=== PATIENT | male | born 1950 | race Caucasian/White ===

== ENCOUNTER 2018-08-02 12:28 | Inpatient (IN) | payer MEDICARE ==
[2018-08-02 13:14] LABS: #Lymphocytes 0.3 thou/uL (1.20-3.40); #Monocytes 0.4 thou/uL (0.11-0.59); #Neutrophils 4.7 thou/uL (1.40-6.50); %Eosinophils 0.8 % (0.0-10.0); %Lymphocytes 5.3 % (21.0-51.0); %Monocytes 7.4 % (0.0-10.0); %Neutrophils 86.6 % (42.0-75.0); Hemoglobin 12.7 g/dL (14.0-18.0); Mean Corpuscular HGB CONC 33.5 g/dL (32.0-36.0); Mean Corpuscular Hemoglobin 30.8 pg (27.0-31.0); Mean Corpuscular Volume 92.1 fL (78.0-98.0); Mean Platelet Volume 8.4 fL (7.4-10.4); Platelet Count 127 thou/uL (130-400); RBC Distribution Width 13.1 % (11.5-14.5); Red Blood Cell (RBC) Count 4.11 mill/uL (4.70-6.10); White Blood Cell (WBC) Count 5.4 thou/uL (4.8-10.8)
[2018-08-02 13:27] LABS: ALT (SGPT) 12 U/L (8-55); AST (SGOT) 18 U/L (5-34); Alkaline Phosphatase 63 U/L (40-150); Anion Gap 13 mmol/L (10-20); BUN (Urea Nitrogen) 13 mg/dL (8.4-25.7); Bilirubin, Total 1.5 mg/dL (0.2-1.2); CK (CPK) 165 U/L (30-200); Calc. Creatinine Clearance 0 mL/min (70-130); Calcium 9.2 mg/dL (7.8-10.44); Carbon Dioxide 25 mmol/L (23-31); Chloride 105 mmol/L (98-107); Estimated GFR-MDRD 84; Globulin 2.4 g/dL (2.4-3.5); Glucose 107 mg/dL (80-115); Potassium 3.5 mmol/L (3.5-5.1); Protein, Total 6.4 g/dL (5.8-8.1); Sodium 139 mmol/L (136-145)
--- NOTE | 2018-08-02 13:33 | RAD ---
TWO VIEWS CHEST: Date: 08-02-18 Provided Clinical History: Cough. FINDINGS: Comparison is made with the study dated 11-13-13. Cardiac silhouette appears upper limits of normal in size. Median sternotomy changes are seen. Chroni c obstructive changes are suspected. No focal consolidation, pleural fluid or pneumothorax apparent. Posterior costophrenic angles are not included on the lateral view, precluding evaluation for small a neo of pleural fluid. IMPRESSION: No definite evidence for an acute cardiopulmonary process. POS: [facility]
[2018-08-02 13:48] LABS: CKMB 1.6 ng/mL (0-6.6)
--- NOTE | 2018-08-02 13:48 | PDOC.FPRHP ---
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 He noticed it this morning after he woke up and he was not able to get out of bed. Normally, despite his deficits, he is able to get out of bed with minimal assistance, however today, his was also not able to help him out of bed. He reportedly had a measured temperature of 101.5 at home. Reports non-productive cough since last night. He also complains of some nasal congestion. His was recently diagnosed with and receiving treatment for pneumonia. ED Course: Received 1 inch Nitro paste and 500 cc NS. - Allergies/Adverse Reactions Allergies Allergy/AdvReac Type Severity Reaction Status Date / Time clarithromycin Allergy Verified 11/13/13 21:23 colchicine Allergy Diarrhea Verified 11/20/13 11:26 erythromycin lactobionate Allergy Verified 11/13/13 21:23 [From Erythrocin] meloxicam Allergy Verified 11/13/13 21:23 metoclopramide Allergy Verified 11/13/13 21:23 NSAIDS (Non-Steroidal Allergy Verified 11/13/13 21:23 Anti-Inflamma - Home Medications Medication Instructions Recorded Confirmed Type Baclofen 10 mg PO BID 11/13/13 08/02/18 History Carvedilol 12.5 mg PO BID 11/13/13 08/02/18 History Digoxin [Lanoxin] 0.25 mg PO DAILY 11/13/13 08/02/18 History Loratadine [Claritin] 10 mg PO DAILY 11/13/13 08/02/18 History Simvastatin 40 mg PO HS 11/13/13 08/02/18 History Tamsulosin HCl [Flomax] 0.4 mg PO DAILY 11/13/13 08/02/18 History Clopidogrel Bisulfate [Plavix] 75 mg PO DAILY 11/20/13 08/02/18 History Acetaminophen [Tylenol] 1,000 mg PO Q6HR PRN 08/02/18 08/02/18 History - History PMHx: CAD, CVA(2011), HTN, HLD, Gout, BPH PSHx: CABG x 5 (2008), Vasectomy, Tonsillectomy, Hernia Repair FHx:Non-contributory. Social:Denies tobacco, alcohol, and drug use. Lives at home with . Ambulatory with walker. - Review of Systems General: reports: fever/chills. denies: weight/appetite/sleep changes ENT: reports: nasal congestion Respiratory: reports: cough, congestion. denies: shortness of breath Cardiovascular: denies: chest pain, edema Gastrointestinal: denies: nausea, vomiting, diarrhea Skin: denies: rashes Musculoskeletal: denies: other Neurological: reports: weakness, other (dizziness). denies: numbness - Vital signs BP: 135/67 HR: 90 RR: 12 Tmax: 98.0 Pox: 98% on RA Wt: 105kg - Physical Exam Constitutional: NAD HEENT: normocephalic and atraumatic, PERRLA, EOMI Neck: supple Heart: RRR Lungs: CTAB, no respiratory distress, no rales/rhonchi, no wheezing Abdomen: soft, non-tender Musculoskeletal: normal structure Neurological: CN II-XII intact, other (RUE and RLE 4/5 weakness with spasticity. ) Skin: no rash/lesions Psychiatric: normal mood and affect FMR H&P: Results - Labs Result Diagrams: 08/02/18 13:00 08/02/18 13:00 Lab results: WBC 5.4 thou/uL (4.8-10.8) 08/02/18 13:00 Hgb 12.7 g/dL (14.0-18.0) L 08/02/18 13:00 Hct 37.8 % (42.0-52.0) L 08/02/18 13:00 MCV 92.1 fL (78.0-98.0) 08/02/18 13:00 Plt Count 127 thou/uL (130-400) L 08/02/18 13:00 Neutrophils % 86.6 % (42.0-75.0) H 08/02/18 13:00 Sodium 139 mmol/L (136-145) 08/02/18 13:00 Potassium 3.5 mmol/L (3.5-5.1) 08/02/18 13:00 Chloride 105 mmol/L (98-107) 08/02/18 13:00 Carbon Dioxide 25 mmol/L (23-31) 08/02/18 13:00 BUN 13 mg/dL (8.4-25.7) 08/02/18 13:00 Creatinine 0.90 mg/dL (0.7-1.3) 08/02/18 13:00 Glucose 107 mg/dL (80-115) 08/02/18 13:00 Lactic Acid 0.8 mmol/L (0.5-2.2) 08/02/18 13:00 Calcium 9.2 mg/dL (7.8-10.44) 08/02/18 13:00 Total Bilirubin 1.5 mg/dL (0.2-1.2) H 08/02/18 13:00 AST 18 U/L (5-34) 08/02/18 13:00 ALT 12 U/L (8-55) 08/02/18 13:00 Alkaline Phosphatase 63 U/L (40-150) 08/02/18 13:00 Creatine Kinase 165 U/L (30-200) 08/02/18 13:00 Serum Total Protein 6.4 g/dL (5.8-8.1) 08/02/18 13:00 Albumin 4.0 g/dL (3.4-4.8) 08/02/18 13:00 - EKG Interpretation EKG: EKG: Sinus tachycardia with rate of 102; RBBB. - Radiology Interpretation Chest x-ray Status: report reviewed by nm FMR H&P: A/P - Problem List (1) Elevated troponin I level Current Visit: Yes Status: Acute Code(s): R74.8 - ABNORMAL LEVELS OF OTHER SERUM ENZYMES (2) History of stroke Current Visit: Yes Status: Acute Code(s): Z86.73 - PRSNL HX OF TIA (TIA), AND CEREB INFRC W/O RESID DEFICITS (3) Coronary artery disease Current Visit: Yes Status: Acute Code(s): I25.10 - ATHSCL HEART DISEASE OF [place] CORONARY ARTERY W/O ANG PCTRS (4) Upper respiratory infection Current Visit: Yes Status: Acute Code(s): J06.9 - ACUTE UPPER RESPIRATORY INFECTION, UNSPECIFIED (5) Hypertension Current Visit: Yes Status: Acute Code(s): I10 - ESSENTIAL (PRIMARY) HYPERTENSION (6) Hyperlipidemia Current Visit: Yes Status: Acute Code(s): E78.5 - HYPERLIPIDEMIA, UNSPECIFIED (7) Gout Current Visit: Yes Status: Acute Code(s): M10.9 - GOUT, UNSPECIFIED (8) BPH (benign prostatic hyperplasia) Current Visit: Yes Status: Acute Code(s): N40.0 - BENIGN PROSTATIC HYPERPLASIA WITHOUT LOWER URINRY TRACT SYMP - Plan Assessment and Plan Indeterminately elevated troponin - likely related to demand ischemia, vs. NSTEMI; Viral myocardititis a possibility although timecourse does not fit. - no active chest pain. - will continue to trend troponins. Obtain BNP, TSH. - will keep patient NPO over midnight in case of possible discussion with cardiology. Lower extremity weakness - seems consistent with pt's baseline RLE deficits. - will consult physical therapy for evaluation and recommendations. Likely viral upper respiratory infection - with negative flu, negative CXR. - obtain Procal. - will administer mucolytics. Hyperbilirubinemia - mild. Tbili 1.5; will obtain direct. - repeat CMP in AM. Coronary artery disease - will continue to trend troponins. - resume home medications. History of CVA - deficits as described above. - continue Plavix Hypertension - resume home medications. Hyperlipidemia - resume home medications. Gout? - continue Colchrys
[2018-08-02 16:00] VITALS: BMI 27.6
[2018-08-02 16:55] LABS: Troponin I 0.123 ng/mL (< 0.028)
[2018-08-02 17:09] LABS: Thyroid Stimulating Hormone 0.637 uIU/mL (0.35-4.94)
[2018-08-02] MEDS: Acetaminophen 325 MG TAB PO PRN (17:30)
[2018-08-02] MEDS ORDERED: guaiFENesin ER 600 MG TAB PO SCH (17:45)
[2018-08-02] MEDS: Baclofen 10 MG TAB PO SCH (21:35)
[2018-08-02] MEDS: Carvedilol 6.25 MG TAB PO SCH (21:35)
[2018-08-02] MEDS: Atorvastatin Calcium 20 MG TAB PO SCH (21:35)
[2018-08-02] MEDS: guaiFENesin ER 600 MG TAB PO SCH (21:35)
[2018-08-02] MEDS: Acetaminophen 500 MG TAB PO PRN (23:58)
--- NOTE | 2018-08-03 00:33 | PDOC.EVN ---
Event Note - Event Note Event Note: Paged by nursing staff due to patient experiencing worsening lower extremity weakness. Residents came and evaluated patient. present at bedside. Patient states he has felt ill for 2 days. Stated patient had elevated temp of 102F and became confused and tried to get out of bed. patient has know RUE and RLE 4/5 weakness and spasticity due to prior CVA. On my exam, RUE and RLE consistent with history. LUE 5/5. LLE 4/5. Review of chart showed procalcitonin of 0.4. Given recurrent fever, new weakness, and currently undergoing treatment for CAP, will empirically start doxycycline for CAP treatment since allergic to erythormycin. I believe his weakness is due to his underlying illness and not due to an ischemic neurological event. Will reassess in 2-3 hours and monitor for signs of worsening.
[2018-08-03 05:22] LABS: ALT (SGPT) 12 U/L (8-55); AST (SGOT) 25 U/L (5-34); Albumin 3.8 g/dL (3.4-4.8); Alkaline Phosphatase 57 U/L (40-150); Anion Gap 14 mmol/L (10-20); BUN (Urea Nitrogen) 15 mg/dL (8.4-25.7); Bilirubin, Total 1.5 mg/dL (0.2-1.2); Calc. Creatinine Clearance 104 mL/min (70-130); Carbon Dioxide 26 mmol/L (23-31); Chloride 101 mmol/L (98-107); Estimated GFR-MDRD 71; Globulin 2.4 g/dL (2.4-3.5); Glucose 94 mg/dL (80-115); Potassium 3.6 mmol/L (3.5-5.1); Protein, Total 6.2 g/dL (5.8-8.1); Sodium 137 mmol/L (136-145)
[2018-08-03 05:24] LABS: #Lymphocytes 0.5 thou/uL (1.20-3.40); #Monocytes 0.3 thou/uL (0.11-0.59); #Neutrophils 4.4 thou/uL (1.40-6.50); %Eosinophils 0.1 % (0.0-10.0); %Lymphocytes 8.8 % (21.0-51.0); %Monocytes 6.2 % (0.0-10.0); %Neutrophils 84.9 % (42.0-75.0); Hemoglobin 12.2 g/dL (14.0-18.0); Mean Corpuscular HGB CONC 33.4 g/dL (32.0-36.0); Mean Corpuscular Hemoglobin 31.5 pg (27.0-31.0); Mean Corpuscular Volume 94.1 fL (78.0-98.0); Mean Platelet Volume 8.3 fL (7.4-10.4); Platelet Count 97 thou/uL (130-400); Platelet Morphology Comment Appears Decreased; Red Blood Cell (RBC) Count 3.87 mill/uL (4.70-6.10); White Blood Cell (WBC) Count 5.1 thou/uL (4.8-10.8)
--- NOTE | 2018-08-03 05:51 | PDOC.FM ---
- Subjective Subjective: Tmax of 102.8F overnight w/ reported increased LE weakness per the patient. On exam, weakness noted to be at baseline. Patient denies any cough, chest pain, headache, SOB, or N/V/D. He also denies any changes in his speech or numbness/ tingling in anywhere. Says he feel slightly improved since admission. - Objective MAR Reviewed: Yes Vital Signs & Weight: Vital Signs (12 hours) Temp Pulse Resp BP BP Pulse Ox 08/03/18 04:11 99.3 F 106 H 20 131/63 92 L 08/02/18 23:49 102.8 F H 105 H 20 145/73 H 94 L 08/02/18 21:35 120/62 08/02/18 19:38 98.1 F 76 16 120/62 98 Weight Weight 105.188 kg I&O: 08/01/18 08/02/18 08/03/18 06:59 06:59 06:59 Intake Total 200 Balance 200 Result Diagrams: 08/03/18 04:47 08/03/18 04:47 Phys Exam - Physical Examination Constitutional: NAD HEENT: moist MMs Neck: no nodes, supple, full ROM Respiratory: no wheezing, no rales, no rhonchi, clear to auscultation bilateral Cardiovascular: RRR, no significant murmur Gastrointestinal: soft, positive bowel sounds Musculoskeletal: no edema, pulses present Neurological: moves all 4 limbs Psychiatric: normal affect, A&O x 3 Skin: no rash, normal turgor Dx/Plan (1) BPH (benign prostatic hyperplasia) Code(s): N40.0 - BENIGN PROSTATIC HYPERPLASIA WITHOUT LOWER URINRY TRACT SYMP Status: Acute (2) Coronary artery disease Code(s): I25.10 - ATHSCL HEART DISEASE OF [place] CORONARY ARTERY W/O ANG PCTRS Status: Acute (3) Elevated troponin I level Code(s): R74.8 - ABNORMAL LEVELS OF OTHER SERUM ENZYMES Status: Acute (4) Gout Code(s): M10.9 - GOUT, UNSPECIFIED Status: Acute (5) History of stroke Code(s): Z86.73 - PRSNL HX OF TIA (TIA), AND CEREB INFRC W/O RESID DEFICITS Status: Acute (6) Hyperlipidemia Code(s): E78.5 - HYPERLIPIDEMIA, UNSPECIFIED Status: Acute (7) Hypertension Code(s): I10 - ESSENTIAL (PRIMARY) HYPERTENSION Status: Acute (8) Upper respiratory infection Code(s): J06.9 - ACUTE UPPER RESPIRATORY INFECTION, UNSPECIFIED Status: Acute (9) Atrial fibrillation Code(s): I48.91 - UNSPECIFIED ATRIAL FIBRILLATION Status: Acute (10) Gastroesophageal reflux disease Code(s): K21.9 - GASTRO-ESOPHAGEAL REFLUX DISEASE WITHOUT ESOPHAGITIS Status: Acute - Plan Plan: Indeterminately elevated troponin - Likely related to demand ischemia in the setting of an acute illness as trops downtrended overnight & patient denies active chest pain. Viral myocardititis a possibility although time course does not fit. - However BNP also elevated at 755.9 suggestive of a possible CHF exacerbation but no baseline for comparison. TSH WNLs. - Will treat possible acute respiratory illness as described below and obtain an ECHO to evaluate for CHF today. Lower extremity weakness - Seems consistent with pt's baseline RLE deficits. Could subjectively seem worse to patient 2/2 generalized weakness in setting of acute illness. However, will continue to monitor closely over course of the day as GBS could be a possibly 2/2 acute viral illness. - Will consult physical therapy for evaluation and recommendations. No serious concerns for an acute ischemic cerebral event. Upper respiratory infection vs. CAP - Negative flu & CXR on admission but will start on empiric abx since being treated for CAP currently & patient fevered up to 102.8F overnight. - Initial procal indeterminate a 0.43. Will continue to trend and consider de- escalating abx accordingly in conjunction w/ watching for improvement in patient 's clinical status. - Will continue mucolytics & PRN supplemental O2 to keep sats > 92%. Will also continue PRN tylenol for fever & consider adding motrin as well. Hyperbilirubinemia - mild. Tbili 1.5 w/ direct slightly elevated at 0.6 on admission. Per chart review elevated Total & direct bili are within patient's baseline. With normal LFTs and Alk phos unlikely biliary in origin. Patient also has a normocytic anemia. 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 Will consider further workup if any s/s of active hemolysis present. Will continue to monitor w/ CBCs & CMPs. Coronary artery disease - resume home medications. History of CVA - deficits as described above. - continue Plavix Hypertension - resume home medications. Hyperlipidemia - resume home medications. Gout - continue Colchrys Dispo: Will transfer to medical obs and continue to monitor respiratory status & weakness closely. Possibly d/c tomorrow if continues to improve.
[2018-08-03] MEDS: Acetaminophen 500 MG TAB PO PRN (08:07)
[2018-08-03] MEDS: Baclofen 10 MG TAB PO SCH ×2 (08:08→20:44)
[2018-08-03] MEDS: Clopidogrel Bisulfate 75 MG TAB PO SCH (08:08)
[2018-08-03] MEDS: Enoxaparin Sodium 40 MG/0.4 ML SYRINGE SC SCH (08:08)
[2018-08-03] MEDS: Digoxin 0.25 MG TAB PO SCH (08:08)
[2018-08-03] MEDS: Loratadine 10 MG TAB PO SCH (08:08)
[2018-08-03] MEDS: Tamsulosin HCl 0.4 MG CAP PO SCH (08:09)
[2018-08-03] MEDS: guaiFENesin ER 600 MG TAB PO SCH ×2 (08:09→20:43)
[2018-08-03] MEDS: Carvedilol 6.25 MG TAB PO SCH ×2 (08:09→20:43)
--- NOTE | 2018-08-03 12:27 | PRG ---
DATE OF SERVICE: Mr. Turcios is a pleasant 67-year-old male patient who was admitted yesterday with weakness in both lower extremities and a febrile illness, likely viral.. This morning, he looks and feels much better. He does have a slight right hemiparesis from previous CVA, but is able to move his left side with no difficulties. His flu swab done yesterday was also negative. He did run another fever during the night and because his is currently being treating for CAP, we began empirical therapy for this. We will continue to monitor for any other signs and symptoms of infection. Clinically, Mr. Turcios states that he feels better and is in no acute distress. He is completely awake, alert. Job ID: [id number]
[2018-08-03] MEDS: Acetaminophen 325 MG TAB PO PRN ×2 (13:56→23:44)
[2018-08-03] MEDS: Atorvastatin Calcium 20 MG TAB PO SCH (20:43)
--- NOTE | 2018-08-03 21:06 | RAD ---
PORTABLE CHEST: 08/03/18 HISTORY: Shortness of breath. Hypoxia. COMPARISON: 08/02/18. Heart is borderline cardiomegaly with postop sternotomy change, stable. There is new perihilar hazine ss today suggesting perihilar edema or infiltrate bilaterally. No effusion. IMPRESSION: Evidence of new bilateral perihilar infiltrates or edema. Followup recommended. POS: [facility]
[2018-08-03] MEDS ORDERED: Furosemide 40 MG/4 ML VIAL SLOW IVP SCH (21:45)
[2018-08-03] MEDS ORDERED: Diltiazem 125 MG in Sodium Chloride 0.9% 100 ML IVPB SCH (21:45)
[2018-08-03 21:55] LABS: CKMB 2.1 ng/mL (0-6.6)
[2018-08-03] MEDS ORDERED: Sodium Chloride 0.9% 10 ML ONE (23:29)
--- NOTE | 2018-08-04 02:53 | PDOC.EVN ---
Event Note - Event Note Event Note: Paged by nursing at 2030 by nursing informing patient's pulse was 130. I went to evaluate the patient and found patient to have a tachycardic, irregular rhythm. Patient A&Ox4 and denied CP or SOB. Nurse had given PM coreg at 1999. Ordered CXR, EKG, trop, and BNP. EKG showed A-fib with RVR. CXR concerning for fluid overload vs interstitial pneumonia. BNP and trop essentially unchanged. Review of chart showed patient was not given AM dose of coreg. Transferred patient to [facility], given Diltiazem 15 mg IVP, and started on Diltiazem gtt at 5 mg /hr. Re-evaluated patient at 0200 and found to be in rate controlled A-fib. Given order to d/c diltiazem drip and call residents if pulse >110. Discussed with Dr. Gardner.
--- NOTE | 2018-08-04 06:57 | PDOC.FM ---
- Subjective Subjective: Patient states he feel better this AM. Continues to deny any chest pain, SOB, or N/V/D. Reports feeling fever & chills and a persistent dry cough. Per is starting to sound more wet. States LE weakness is unchanged. - Objective MAR Reviewed: Yes Vital Signs & Weight: Vital Signs (12 hours) Temp Pulse Resp BP BP Pulse Ox 08/04/18 04:23 93 L 08/04/18 03:30 99.3 F 89 20 113/56 L 93 L 08/04/18 00:35 101.1 F H 08/03/18 23:49 103 H 20 116/69 08/03/18 23:05 102.8 F H 130 H 20 124/71 95 08/03/18 20:43 117/81 08/03/18 20:00 92 L 08/03/18 19:31 94 L Weight Weight 109.225 kg I&O: 08/02/18 08/03/18 08/04/18 06:59 06:59 06:59 Intake Total 560 338 Output Total 1150 1125 Balance -590 -773 Result Diagrams: 08/04/18 07:53 08/04/18 07:53 Phys Exam - Physical Examination Constitutional: NAD HEENT: moist MMs Neck: supple, full ROM Respiratory: no wheezing, no rales, no rhonchi, clear to auscultation bilateral Cardiovascular: no significant murmur irregularly irregular rhythm w/ normal rate Gastrointestinal: soft, positive bowel sounds Musculoskeletal: no edema, pulses present generalized weakness Neurological: non-focal, moves all 4 limbs Psychiatric: normal affect, A&O x 3 Skin: no rash, normal turgor Dx/Plan (1) BPH (benign prostatic hyperplasia) Code(s): N40.0 - BENIGN PROSTATIC HYPERPLASIA WITHOUT LOWER URINRY TRACT SYMP Status: Acute (2) Coronary artery disease Code(s): I25.10 - ATHSCL HEART DISEASE OF [place] CORONARY ARTERY W/O ANG PCTRS Status: Acute (3) Elevated troponin I level Code(s): R74.8 - ABNORMAL LEVELS OF OTHER SERUM ENZYMES Status: Acute (4) Gout Code(s): M10.9 - GOUT, UNSPECIFIED Status: Acute (5) History of stroke Code(s): Z86.73 - PRSNL HX OF TIA (TIA), AND CEREB INFRC W/O RESID DEFICITS Status: Acute (6) Hyperlipidemia Code(s): E78.5 - HYPERLIPIDEMIA, UNSPECIFIED Status: Acute (7) Hypertension Code(s): I10 - ESSENTIAL (PRIMARY) HYPERTENSION Status: Acute (8) Upper respiratory infection Code(s): J06.9 - ACUTE UPPER RESPIRATORY INFECTION, UNSPECIFIED Status: Acute (9) Atrial fibrillation Code(s): I48.91 - UNSPECIFIED ATRIAL FIBRILLATION Status: Acute (10) Gastroesophageal reflux disease Code(s): K21.9 - GASTRO-ESOPHAGEAL REFLUX DISEASE WITHOUT ESOPHAGITIS Status: Acute - Plan Plan: Atrial fibrillation w/ RVR - Likely exacerbated in setting of acute illness - Patient went into afib w/ RVR overnight w/ HR reaching the 130s. Resolved after a dilt bolus and a few hours on dilt drip. Patient now back on telemetry & off of dilt drip. Currently in a fib w/ rate in the 80s. - Will continue to monitor on telemetry and continue home meds as scheduled. - Will consider chronic anticoagulation since [id number] score of 5. Suspected sepsis 2/2 possible CAP - Negative flu & CXR but repeat CXR overnight showed possible interstitial PNA vs. pulmonary effusions. Blood Cxs from admission + for bacillus species, 1 out of 2. Tmax of 102.8F over last 24 hours but currently HD stable. - Procal & lactate both up from admission this AM at 4.44 and 1.1. Will continue to trend, will reculture & start on BS abx pending new Cx results. Will obtain a UA & urine culture as well. - Will continue mucolytics & PRN supplemental O2 to keep sats > 92%. Will also continue PRN tylenol for fever. - Will consider cautious fluid resuscitation w/ close monitoring of 2/2 decreased PO intake. Indeterminately elevated troponin - Repeat trop overnight elevated at 0.141 and trended up to 0.201. Will consider a repeat EKG and continue to trend trops but likely related to demand ischemia in the setting of an acute illness as patient denies any chest pain since admission. - BNP stable around ~750 since admission. - Will treat possible sepsis 2/2 CAP as described above. - ECHO read still pending. Lower extremity weakness - Seems consistent with pt's baseline RLE deficits. Could subjectively seem worse to patient 2/2 generalized weakness in setting of acute illness. However, will continue to monitor closely over course of the day as GBS could be a possibly 2/2 acute viral illness. - Walked 12 feet w/ PT yesterday. Recommended rehab upon discharge. Still no serious concerns for an acute ischemic cerebral event but will have PT continue to follow. Hyperbilirubinemia - Tbili & direct bili stable at 1.5 & 0.6 respectively. Per chart review elevated Total & direct bili are within patient's baseline. AST slightly elevated but could also be 2/2 acute illness. Patient also has a normocytic anemia that is stable. Likely has Gilbert's. Will consider further workup if any s/s of active hemolysis present. Will continue to monitor w/ CBCs & CMPs. Coronary artery disease - resume home medications. History of CVA - deficits as described above. - continue Plavix Hypertension - resume home medications. Hyperlipidemia - resume home medications. Gout - Continue Colchrys Dispo: Will continue to monitor vitals closely and start on broad spectrum abx for possible sepsis. Will tailor abx accordingly pending repeat blood & urine cultures.
[2018-08-04 06:58] LABS: Troponin I 0.201 ng/mL (< 0.028)
[2018-08-04 08:11] LABS: #Lymphocytes 0.9 thou/uL (1.20-3.40); #Monocytes 0.4 thou/uL (0.11-0.59); #Neutrophils 4.5 thou/uL (1.40-6.50); %Eosinophils 0.4 % (0.0-10.0); %Lymphocytes 15.7 % (21.0-51.0); %Monocytes 6.4 % (0.0-10.0); %Neutrophils 77.5 % (42.0-75.0); Hemoglobin 12.6 g/dL (14.0-18.0); Mean Corpuscular HGB CONC 33.4 g/dL (32.0-36.0); Mean Corpuscular Hemoglobin 31.5 pg (27.0-31.0); Mean Corpuscular Volume 94.2 fL (78.0-98.0); Mean Platelet Volume 8.6 fL (7.4-10.4); Platelet Count 90 thou/uL (130-400); RBC Distribution Width 13.2 % (11.5-14.5); Red Blood Cell (RBC) Count 4.01 mill/uL (4.70-6.10); White Blood Cell (WBC) Count 5.8 thou/uL (4.8-10.8)
[2018-08-04 08:25] LABS: ALT (SGPT) 15 U/L (8-55); AST (SGOT) 44 U/L (5-34); Albumin 3.4 g/dL (3.4-4.8); Alkaline Phosphatase 49 U/L (40-150); Anion Gap 13 mmol/L (10-20); BUN (Urea Nitrogen) 17 mg/dL (8.4-25.7); Bilirubin, Total 1.5 mg/dL (0.2-1.2); Calc. Creatinine Clearance 118 mL/min (70-130); Calcium 8.8 mg/dL (7.8-10.44); Carbon Dioxide 25 mmol/L (23-31); Chloride 98 mmol/L (98-107); Estimated GFR-MDRD 79; Globulin 2.4 g/dL (2.4-3.5); Glucose 97 mg/dL (80-115); Potassium 3.3 mmol/L (3.5-5.1); Protein, Total 5.8 g/dL (5.8-8.1); Sodium 133 mmol/L (136-145)
[2018-08-04] MEDS: Baclofen 10 MG TAB PO SCH ×2 (08:36→21:32)
[2018-08-04] MEDS: Digoxin 0.25 MG TAB PO SCH (08:36)
[2018-08-04] MEDS: Enoxaparin Sodium 40 MG/0.4 ML SYRINGE SC SCH (08:36)
[2018-08-04] MEDS: Loratadine 10 MG TAB PO SCH (08:36)
[2018-08-04] MEDS: Tamsulosin HCl 0.4 MG CAP PO SCH (08:36)
[2018-08-04] MEDS: Clopidogrel Bisulfate 75 MG TAB PO SCH (08:36)
[2018-08-04] MEDS: Carvedilol 6.25 MG TAB PO SCH ×2 (08:36→21:32)
[2018-08-04] MEDS: guaiFENesin ER 600 MG TAB PO SCH ×2 (08:37→21:33)
[2018-08-04] MEDS: Vancomycin HCl 1.5 GM in Sodium Chloride 0.9% 250 ML 300 ML IVPB SCH ×2 (08:37→21:33)
[2018-08-04] MEDS ORDERED: Potassium Chloride 20 MEQ TAB PO SCH (08:45)
[2018-08-04] MEDS ORDERED: Sodium Chloride 0.9% 500 ML IV SCH (09:00)
--- NOTE | 2018-08-04 11:44 | PRG ---
DATE OF SERVICE: 08/04/2018 SUBJECTIVE: Mr. Turcios spiked the high fever last night. There is still no obvious source of infection. We have obtained blood and urine cultures and started broad-spectrum antibiotics, pending the results of these. He also had an episode of atrial fibrillation with rapid ventricular response, which responded to diltiazem drip. He is now in normal sinus rhythm. We will continue to monitor for any focal signs of a source of infection. Job ID: [id number]
[2018-08-04] MEDS: Piperacillin/Tazobactam 3.375 GM in Sodium Chloride 0.9% 100 ML IVPB SCH ×2 (12:55→17:49)
[2018-08-04] MEDS: Acetaminophen 325 MG TAB PO PRN (14:33)
[2018-08-04 15:02] LABS: Bilirubin Small (Negative); Blood, Urine Negative (Negative); Clarity CLEAR (Clear); Glucose, Urine (Dipstick) Negative (Negative); Leukocyte Negative (Negative); Nitrite Negative (Negative); Protein, Urine (Dipstick) 30 mg/dL (Neg-Trace); pH, Urine 5.5 (5.0-9.0)
[2018-08-04 15:04] LABS: Bacteria/HPF None Seen HPF (None Seen); Hyaline Casts/LPF 0-3 HYALINE CAST LPF (0-3 Hyaline); Pathc Cast-AUWi Flag 0.72 (0-2.49); Squamous Epithelial 0-3 HPF (0-3)
[2018-08-04 15:06] LABS: Urine Culture Reflex Yes Yes
[2018-08-04 15:11] LABS: Strep pneumo Urine Ag NEGATIVE (NEGATIVE)
[2018-08-04] MEDS: Atorvastatin Calcium 20 MG TAB PO SCH (21:32)
[2018-08-05] MEDS: Piperacillin/Tazobactam 3.375 GM in Sodium Chloride 0.9% 100 ML IVPB SCH ×5 (00:17→23:47)
--- NOTE | 2018-08-05 06:12 | PDOC.FM ---
- Subjective Subjective: Patient states he feels better this morning. Was sitting up brushing his teeth in bed on exam. Endorses a persistent cough but still unproductive. - Objective MAR Reviewed: Yes Vital Signs & Weight: Vital Signs (12 hours) Temp Pulse Resp BP BP Pulse Ox 08/05/18 04:54 94 L 08/05/18 03:10 98 F 71 16 144/69 H 92 L 08/05/18 00:00 97.5 F L 68 20 124/59 L 94 L 08/04/18 21:32 128/67 08/04/18 19:38 99.5 F 71 18 128/67 93 L Weight Weight 111.674 kg I&O: 08/03/18 08/04/18 08/05/18 06:59 06:59 06:59 Intake Total 599 207 9263 Output Total 1150 1125 550 Balance -590 78 2338 Result Diagrams: 08/05/18 06:05 08/05/18 06:05 Phys Exam - Physical Examination Constitutional: NAD HEENT: moist MMs Neck: supple, full ROM Respiratory: no wheezing, no rales, no rhonchi, clear to auscultation bilateral decreased air movement throughout Cardiovascular: RRR, no significant murmur Gastrointestinal: positive bowel sounds Neurological: non-focal, moves all 4 limbs Psychiatric: normal affect, A&O x 3 Skin: no rash, normal turgor Dx/Plan (1) BPH (benign prostatic hyperplasia) Code(s): N40.0 - BENIGN PROSTATIC HYPERPLASIA WITHOUT LOWER URINRY TRACT SYMP Status: Acute (2) Coronary artery disease Code(s): I25.10 - ATHSCL HEART DISEASE OF [place] CORONARY ARTERY W/O ANG PCTRS Status: Acute (3) Elevated troponin I level Code(s): R74.8 - ABNORMAL LEVELS OF OTHER SERUM ENZYMES Status: Acute (4) Gout Code(s): M10.9 - GOUT, UNSPECIFIED Status: Acute (5) History of stroke Code(s): Z86.73 - PRSNL HX OF TIA (TIA), AND CEREB INFRC W/O RESID DEFICITS Status: Acute (6) Hyperlipidemia Code(s): E78.5 - HYPERLIPIDEMIA, UNSPECIFIED Status: Acute (7) Hypertension Code(s): I10 - ESSENTIAL (PRIMARY) HYPERTENSION Status: Acute (8) Upper respiratory infection Code(s): J06.9 - ACUTE UPPER RESPIRATORY INFECTION, UNSPECIFIED Status: Acute (9) Atrial fibrillation Code(s): I48.91 - UNSPECIFIED ATRIAL FIBRILLATION Status: Acute (10) Gastroesophageal reflux disease Code(s): K21.9 - GASTRO-ESOPHAGEAL REFLUX DISEASE WITHOUT ESOPHAGITIS Status: Acute - Plan Plan: Suspected sepsis 2/2 possible CAP - Negative flu & CXR but repeat CXR overnight yesterday showed possible interstitial PNA vs. pulmonary effusions. Blood Cxs from admission + for bacillus species, 1 out of 2. Tmax of 101.1F over last 24 hours but remains HD stable. - Procal & lactate both up from admission yesterday AM at 4.44 and 1.1. Repeats pending for this AM. Will continue to trend. Repeat blood Cxs and urine cx pending. Will continue BS abx, Vanc & zosyn that were started yesterday. - Will continue mucolytics & PRN supplemental O2 to keep sats > 92%. Will also continue PRN tylenol for fever. - Will consider cautious fluid resuscitation PRN w/ close monitoring of 2/2 decreased PO intake. + balance of 2338mL w/ only 550mL of UO over last 24 hours. Will continue to monitor strict I&Os & encourage increased PO intake. Pancytopenia: - WBC down to 3.3 this AM, Hgb 11.1 & plts down to 80. Will hold lovenox for today due to concern for possible early HIT. Will apply SCDs for VTE PPx. - No s/s of an acute bleed. Will continue to monitor closely w/ QD CBCs. Paroxysmal Atrial fibrillation - Patient went back into a fib w/ normal rate around 0200 today. However, converted to NSR again @ 0550. Likely exacerbated/triggered by acute illness. - Will continue to monitor on telemetry and continue home meds. Indeterminately elevated troponin - Repeat trop overnight elevated at 0.141 and trended up to 0.201. Will only repeat if patient has active chest pain as likely related to demand ischemia in the setting of an acute illness. - BNP stable around ~750 since admission. - Will treat possible sepsis 2/2 CAP as described above. - ECHO read showed 55-55% EF w/ diastolic dysfunction. HFpEF: - Aware, ECHO from 08/03 read as described above. Will continue to get strict I& Os but will not fluid restrict in setting of possible sepsis. Will be judicious w/ IVFs & only administer boluses PRN. Lower extremity weakness - Seems consistent with pt's baseline deficits s/p CVA. Could subjectively seem worse to patient 2/2 generalized weakness in setting of acute illness. However, will continue to monitor closely over course of the day as GBS could be a possibly 2/2 acute viral illness. - Walked 15 feet w/ PT on 08/03. Recommended rehab upon discharge; however, CM doesn't think his insurance will approve this. Will likely require a SNU stay. Will place CM consult today. Will have PT continue to follow. Hyperbilirubinemia - Tbili & direct bili stable at 1.5 & 0.6 respectively. Per chart review elevated Total & direct bili are within patient's baseline. AST slightly elevated but could also be 2/2 acute illness. Patient also has a normocytic anemia that is stable. Likely has Gilbert's. Will consider further workup if any s/s of active hemolysis present. Will continue to monitor w/ CBCs & CMPs. Coronary artery disease - resume home medications. History of CVA - deficits as described above. - continue Plavix Hypertension - resume home medications. Hyperlipidemia - resume home medications. Gout - Continue Colchrys h/o GI bleed 2/2 ASA - Aware, why patient is not currently on ASA. 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 Atrial fibrillation w/ RVR, resolved Dispo: Will continue broad spectrum abx for possible sepsis pending repeat blood cultures and urine cultures. Addendum - Attending - Attending Attestation Date/Time: 08/05/18 [id number] I personally evaluated the patient and discussed the management with Dr. Jiménez. I agree with the History, Examination, Assessment and Plan documented above with any addition or exceptions noted below. The patient was sitting up and states he is starting to feel better. Lactate is normal and procal is still elevated though down-trending. Will continue broad spectrum antibiotics. Patient is also in atrial fibrillation with RVR this morning but he cannot tell that his rate is fast. Will adjust coreg. Will also consider adding diltiazem. Replacing patient magnesium.
[2018-08-05 07:07] LABS: #Lymphocytes 0.8 thou/uL (1.20-3.40); #Monocytes 0.3 thou/uL (0.11-0.59); #Neutrophils 2.3 thou/uL (1.40-6.50); %Eosinophils 0.8 % (0.0-10.0); %Lymphocytes 23.3 % (21.0-51.0); %Monocytes 7.8 % (0.0-10.0); %Neutrophils 68.1 % (42.0-75.0); Hemoglobin 11.1 g/dL (14.0-18.0); Mean Corpuscular HGB CONC 34.2 g/dL (32.0-36.0); Mean Corpuscular Hemoglobin 32.2 pg (27.0-31.0); Mean Corpuscular Volume 94.2 fL (78.0-98.0); Mean Platelet Volume 8.8 fL (7.4-10.4); Platelet Count 80 thou/uL (130-400); RBC Distribution Width 12.9 % (11.5-14.5); Red Blood Cell (RBC) Count 3.44 mill/uL (4.70-6.10); White Blood Cell (WBC) Count 3.3 thou/uL (4.8-10.8)
[2018-08-05 07:17] LABS: ALT (SGPT) 16 U/L (8-55); AST (SGOT) 44 U/L (5-34); Albumin 3.1 g/dL (3.4-4.8); Alkaline Phosphatase 45 U/L (40-150); Anion Gap 10 mmol/L (10-20); BUN (Urea Nitrogen) 15 mg/dL (8.4-25.7); Bilirubin, Total 0.8 mg/dL (0.2-1.2); Calc. Creatinine Clearance 123 mL/min (70-130); Calcium 8.5 mg/dL (7.8-10.44); Carbon Dioxide 28 mmol/L (23-31); Chloride 100 mmol/L (98-107); Estimated GFR-MDRD 81; Globulin 2.3 g/dL (2.4-3.5); Glucose 84 mg/dL (80-115); Lactic Acid 0.6 mmol/L (0.5-2.2); Magnesium 1.5 mg/dL (1.6-2.6); Potassium 3.5 mmol/L (3.5-5.1); Protein, Total 5.4 g/dL (5.8-8.1); Sodium 134 mmol/L (136-145)
[2018-08-05] MEDS ORDERED: Magnesium 2 GM/50 ML 1 GM in Premix Bag 1 BAG IVPB SCH (08:00)
[2018-08-05] MEDS: Carvedilol 6.25 MG TAB PO SCH ×2 (08:29→20:22)
[2018-08-05] MEDS: Digoxin 0.25 MG TAB PO SCH (08:29)
[2018-08-05] MEDS: guaiFENesin ER 600 MG TAB PO SCH ×2 (08:29→20:22)
[2018-08-05] MEDS: Tamsulosin HCl 0.4 MG CAP PO SCH (08:30)
[2018-08-05] MEDS: Baclofen 10 MG TAB PO SCH ×2 (08:30→20:22)
[2018-08-05] MEDS: Loratadine 10 MG TAB PO SCH (08:30)
[2018-08-05] MEDS: Clopidogrel Bisulfate 75 MG TAB PO SCH (08:30)
[2018-08-05] MEDS: Vancomycin HCl 1.5 GM in Sodium Chloride 0.9% 250 ML 300 ML IVPB SCH ×2 (08:30→21:38)
[2018-08-05] MEDS ORDERED: Carvedilol 6.25 MG TAB PO SCH (10:15)
[2018-08-05 20:15] LABS: Vancomycin, Trough 17.3 ug/mL
[2018-08-05] MEDS: Atorvastatin Calcium 20 MG TAB PO SCH (20:22)
--- NOTE | 2018-08-06 05:57 | PDOC.FM ---
- Subjective Subjective: Patient reports feeling much better this AM. Denies any chest pain, palpitations , N/V/D, or productive cough. He also denies any fever or chills. States his appetite has improved as well as his weakness. - Objective MAR Reviewed: Yes Vital Signs & Weight: Vital Signs (12 hours) Temp Pulse Resp BP BP Pulse Ox 08/06/18 03:00 98 F 116 H 16 136/73 94 L 08/05/18 20:22 148/70 H 08/05/18 19:20 99.0 F 72 18 148/70 H 94 L Weight Weight 111.674 kg I&O: 08/04/18 08/05/18 08/06/18 06:59 06:59 06:59 Intake Total 338 4190 2150 Output Total 1125 1725 1750 Balance -787 2465 400 Result Diagrams: 08/06/18 05:49 08/06/18 05:49 Phys Exam - Physical Examination Constitutional: NAD HEENT: moist MMs Neck: supple, full ROM Respiratory: no wheezing, no rales, no rhonchi poor air movement throughout Cardiovascular: no significant murmur Gastrointestinal: positive bowel sounds Musculoskeletal: no edema, pulses present Neurological: non-focal, moves all 4 limbs Psychiatric: normal affect, A&O x 3 Skin: no rash, normal turgor Dx/Plan (1) BPH (benign prostatic hyperplasia) Code(s): N40.0 - BENIGN PROSTATIC HYPERPLASIA WITHOUT LOWER URINRY TRACT SYMP Status: Acute (2) Coronary artery disease Code(s): I25.10 - ATHSCL HEART DISEASE OF [place] CORONARY ARTERY W/O ANG PCTRS Status: Acute (3) Elevated troponin I level Code(s): R74.8 - ABNORMAL LEVELS OF OTHER SERUM ENZYMES Status: Acute (4) Gout Code(s): M10.9 - GOUT, UNSPECIFIED Status: Acute (5) History of stroke Code(s): Z86.73 - PRSNL HX OF TIA (TIA), AND CEREB INFRC W/O RESID DEFICITS Status: Acute (6) Hyperlipidemia Code(s): E78.5 - HYPERLIPIDEMIA, UNSPECIFIED Status: Acute (7) Hypertension Code(s): I10 - ESSENTIAL (PRIMARY) HYPERTENSION Status: Acute (8) Upper respiratory infection Code(s): J06.9 - ACUTE UPPER RESPIRATORY INFECTION, UNSPECIFIED Status: Acute (9) Atrial fibrillation Code(s): I48.91 - UNSPECIFIED ATRIAL FIBRILLATION Status: Acute (10) Gastroesophageal reflux disease Code(s): K21.9 - GASTRO-ESOPHAGEAL REFLUX DISEASE WITHOUT ESOPHAGITIS Status: Acute - Plan Plan: Suspected sepsis 2/2 possible CAP - Patient continues to improve since initiation of BS Abx. Tmax of 99.0F over last 24 hours & remains HD stable, with exception of HR increasing periodically 2/2 a fib. - Procal & lactate both downtrending yesterday AM. Repeats pending for today. Will continue to trend. Repeat blood Cxs and urine cx pending, negative to date so far. Will continue BS abx w/ Vanc & zosyn. - Will continue mucolytics & PRN supplemental O2 to keep sats > 92%. Will also continue PRN tylenol for fever. - Will instruct patient to hold off on aggressive PO hydration as he is getting fluids w/ his Abx infusions. +balance of only 400mL over last 24 hours. Will continue to monitor strict I&Os & QD weights. Pancytopenia: - WBC down to 3.3 this AM, Hgb 11.1 & plts down to 80 yesterday AM. Held lovenox due to concern for possible early HIT. However, calculated 4T's score low so lower suspicion for HIT. Will continue to hold lovenox until platelets are >100. No obvious thrombotic skin changes on exam. - Will continue to monitor closely w/ QD CBCs. Atrial fibrillation w/ RVR - Patient went back into a fib yesterday morning but this resolved w/ 25 mg of PO coreg. Appears to be back in a fib this AM as well. Will consider a now dose of 25 cored again & re-evaluate on rounds. Likely exacerbated/triggered by acute illness. - Will continue to monitor on telemetry and continue home meds. paroxysmal A fib - See above. HFpEF: - Aware, ECHO from 08/03 read as described above. Will continue to get strict I& Os & QD weights but will not fluid restrict in setting of possible sepsis. Will be judicious w/ IVFs & only administer boluses PRN. Lower extremity weakness/myositis - Seems consistent with pt's baseline deficits s/p CVA. Could subjectively seem worse to patient 2/2 generalized weakness in setting of acute illness. Is improved slowly day by day. - PT recommended rehab upon discharge; however, CM doesn't think his insurance will approve this. Will likely require a SNU stay; however, PCP would like to try for rehab. Will touch base w/ CM today. Will have PT continue to follow. Hyperbilirubinemia - Stable. Per chart review elevated Total & direct bili are within patient's baseline. AST slightly elevated but could also be 2/2 acute illness. Patient also has a normocytic anemia that is stable. Likely has Gilbert's. Will consider further workup if any s/s of active hemolysis present. Will continue to monitor w/ CBCs & CMPs. Indeterminately elevated troponin - Repeat trop overnight elevated at 0.141 and trended up to 0.201. Will only repeat if patient has active chest pain as likely related to demand ischemia in the setting of an acute illness. Will only repeat if patient develops active chest pain. - BNP stable around ~750 since admission. - Will treat possible sepsis 2/2 CAP as described above. - ECHO read showed 55-55% EF w/ diastolic dysfunction. Coronary artery disease - resume home medications. History of CVA - deficits as described above. - continue Plavix Hypertension - resume home medications. Hyperlipidemia - resume home medications. Gout - Continue Colchrys h/o GI bleed 2/2 ASA - Aware, why patient is not currently on ASA. 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 Dispo: Will continue broad spectrum abx for possible sepsis pending repeat blood cultures and urine cultures. Addendum - Attending - Attending Attestation Date/Time: 08/06/18 1322 I personally evaluated the patient and discussed the management with Dr. Jiménez. I agree with the History, Examination, Assessment and Plan documented above with any addition or exceptions noted below. Patient is feeling better. Thrombocytopenia was likely due to lovenox and is improving since stopping the medication. Will continue antibiotics. Procal is downtrending. Heart rate is controlled this morning.
[2018-08-06 06:07] LABS: #Lymphocytes 0.8 thou/uL (1.20-3.40); #Monocytes 0.3 thou/uL (0.11-0.59); #Neutrophils 1.7 thou/uL (1.40-6.50); %Basophils 0.6 % (0.0-1.0); %Lymphocytes 28.6 % (21.0-51.0); %Monocytes 8.6 % (0.0-10.0); %Neutrophils 61.2 % (42.0-75.0); Hemoglobin 11.4 g/dL (14.0-18.0); Mean Corpuscular HGB CONC 34.4 g/dL (32.0-36.0); Mean Corpuscular Hemoglobin 31.5 pg (27.0-31.0); Mean Corpuscular Volume 91.6 fL (78.0-98.0); Mean Platelet Volume 8.4 fL (7.4-10.4); Platelet Count 95 thou/uL (130-400); RBC Distribution Width 12.8 % (11.5-14.5); White Blood Cell (WBC) Count 2.9 thou/uL (4.8-10.8)
[2018-08-06] MEDS: Piperacillin/Tazobactam 3.375 GM in Sodium Chloride 0.9% 100 ML IVPB SCH ×3 (06:19→17:36)
[2018-08-06 06:38] LABS: ALT (SGPT) 35 U/L (8-55); AST (SGOT) 73 U/L (5-34); Alkaline Phosphatase 45 U/L (40-150); Anion Gap 13 mmol/L (10-20); BUN (Urea Nitrogen) 13 mg/dL (8.4-25.7); Bilirubin, Total 0.7 mg/dL (0.2-1.2); Calc. Creatinine Clearance 128 mL/min (70-130); Calcium 8.4 mg/dL (7.8-10.44); Carbon Dioxide 25 mmol/L (23-31); Chloride 104 mmol/L (98-107); Estimated GFR-MDRD 84; Globulin 2.7 g/dL (2.4-3.5); Glucose 83 mg/dL (80-115); Potassium 3.6 mmol/L (3.5-5.1); Protein, Total 5.7 g/dL (5.8-8.1); Sodium 138 mmol/L (136-145)
[2018-08-06] MEDS: Baclofen 10 MG TAB PO SCH ×2 (08:26→20:27)
[2018-08-06] MEDS: Carvedilol 6.25 MG TAB PO SCH ×2 (08:27→20:26)
[2018-08-06] MEDS: Clopidogrel Bisulfate 75 MG TAB PO SCH (08:28)
[2018-08-06] MEDS: Digoxin 0.25 MG TAB PO SCH (08:28)
[2018-08-06] MEDS: Loratadine 10 MG TAB PO SCH (08:29)
[2018-08-06] MEDS: guaiFENesin ER 600 MG TAB PO SCH ×2 (08:29→20:27)
[2018-08-06] MEDS: Tamsulosin HCl 0.4 MG CAP PO SCH (08:30)
[2018-08-06] MEDS: Vancomycin HCl 1.5 GM in Sodium Chloride 0.9% 250 ML 300 ML IVPB SCH ×2 (08:31→20:27)
[2018-08-06] MEDS: Atorvastatin Calcium 20 MG TAB PO SCH (20:27)
[2018-08-07] MEDS: Piperacillin/Tazobactam 3.375 GM in Sodium Chloride 0.9% 100 ML IVPB SCH ×2 (00:10→06:16)
[2018-08-07 06:17] LABS: #Eosinphils 0.1 thou/uL (0.0-0.7); #Monocytes 0.3 thou/uL (0.11-0.59); #Neutrophils 1.4 thou/uL (1.40-6.50); %Basophils 0.4 % (0.0-1.0); %Eosinophils 3.5 % (0.0-10.0); %Lymphocytes 35.7 % (21.0-51.0); %Monocytes 11.5 % (0.0-10.0); %Neutrophils 48.9 % (42.0-75.0); Hemoglobin 11.2 g/dL (14.0-18.0); Mean Corpuscular HGB CONC 33.7 g/dL (32.0-36.0); Mean Corpuscular Hemoglobin 31.4 pg (27.0-31.0); Mean Corpuscular Volume 93.2 fL (78.0-98.0); Mean Platelet Volume 8.3 fL (7.4-10.4); Platelet Count 110 thou/uL (130-400); RBC Distribution Width 12.5 % (11.5-14.5); Red Blood Cell (RBC) Count 3.57 mill/uL (4.70-6.10); White Blood Cell (WBC) Count 2.8 thou/uL (4.8-10.8)
--- NOTE | 2018-08-07 06:28 | PDOC.FM ---
- Subjective Subjective: Patient reports feeling better this AM. Denies any chest pain, SOB, headache, blurry/spotty vision, or palpitations. States his weakness is slowly improving. Still has a cough but is unable to cough up sputum. - Objective MAR Reviewed: Yes Vital Signs & Weight: Vital Signs (12 hours) Temp Pulse Resp BP BP Pulse Ox 08/06/18 20:26 175/84 H 08/06/18 19:05 98.6 F 60 18 175/84 H 93 L Weight Weight 109.514 kg I&O: 08/05/18 08/06/18 08/07/18 06:59 06:59 06:59 Intake Total 4190 2650 1460 Output Total 1725 1750 1150 Balance 2465 900 310 Result Diagrams: 08/07/18 05:39 08/07/18 05:39 Phys Exam - Physical Examination Constitutional: NAD HEENT: moist MMs Neck: supple, full ROM Respiratory: no wheezing, no rales slight rhonchi on expiration in the right Cardiovascular: RRR, no significant murmur Gastrointestinal: soft, positive bowel sounds Musculoskeletal: no edema, pulses present Neurological: non-focal, moves all 4 limbs Psychiatric: normal affect, A&O x 3 Skin: no rash, normal turgor Dx/Plan (1) BPH (benign prostatic hyperplasia) Code(s): N40.0 - BENIGN PROSTATIC HYPERPLASIA WITHOUT LOWER URINRY TRACT SYMP Status: Acute (2) Coronary artery disease Code(s): I25.10 - ATHSCL HEART DISEASE OF [place] CORONARY ARTERY W/O ANG PCTRS Status: Acute (3) Elevated troponin I level Code(s): R74.8 - ABNORMAL LEVELS OF OTHER SERUM ENZYMES Status: Acute (4) Gout Code(s): M10.9 - GOUT, UNSPECIFIED Status: Acute (5) History of stroke Code(s): Z86.73 - PRSNL HX OF TIA (TIA), AND CEREB INFRC W/O RESID DEFICITS Status: Acute (6) Hyperlipidemia Code(s): E78.5 - HYPERLIPIDEMIA, UNSPECIFIED Status: Acute (7) Hypertension Code(s): I10 - ESSENTIAL (PRIMARY) HYPERTENSION Status: Acute (8) Upper respiratory infection Code(s): J06.9 - ACUTE UPPER RESPIRATORY INFECTION, UNSPECIFIED Status: Acute (9) Atrial fibrillation Code(s): I48.91 - UNSPECIFIED ATRIAL FIBRILLATION Status: Acute (10) Gastroesophageal reflux disease Code(s): K21.9 - GASTRO-ESOPHAGEAL REFLUX DISEASE WITHOUT ESOPHAGITIS Status: Acute - Plan Plan: Suspected sepsis 2/2 possible CAP, improving: - Patient continues to improve since initiation of BS Abx. Tmax of 99.0F over last 24 hours & remains HD stable. with exception of HR increasing periodically 2/2 a fib/flutter. - Procal continues to downtrend. Down to 0.59. Will no longer trend. Repeat blood Cxs and urine cx negative to date so far. Will consider deescalation from BS abx w/ Vanc & zosyn to PO levaquin. - Will continue mucolytics & PRN supplemental O2 to keep sats > 92%. Will also continue PRN tylenol for fever. - Will instruct patient to hold off on aggressive PO hydration as he is getting fluids w/ his Abx infusions. Will continue to monitor strict I&Os & QD weights. Pancytopenia, improving: - WBC stable at 2.8 this AM, Hgb at 11.2 & plts up to 110 after 2 days of holding lovenox due to concern for possible early HIT. However, calculated 4T's score low so will consider resuming lovenox today as platelets are >100. No thrombotic skin noted changes on exam. - Will continue to monitor closely w/ QD CBCs. Bradycardia: - HR down to low 50's to 60s yesterday. Digoxun resumed during hospital stay but per patient has not taken in years. Will hold for today and do a [facility] rec to ensure no other meds patient has not been taking at home have been resumed in hospital. Atrial fibrillation/flutter w/ RVR, improved - Max HR of 116 yesterday but came down to the low 60s w/o any additional meds. - Will continue to monitor on telemetry and continue home meds. Paroxysmal A fib - See above. HFpEF: - Aware, ECHO from 08/03 read as described above. Will continue to get strict I& Os & QD weights but will not fluid restrict for now in setting of acute illness. Will be judicious w/ IVFs & only administer boluses PRN. Lower extremity weakness/myositis - Seems consistent with pt's baseline deficits s/p CVA. Could subjectively seem worse to patient 2/2 generalized weakness in setting of acute illness vs. possible viral myositis. Strength has continued to improved but slowly day by day. - PT recommended rehab upon discharge; however, CM doesn't think his insurance will approve this. Will likely require a SNU stay; however, PCP would like to try for rehab. Will touch base w/ CM today. Will have PT continue to follow. Hyperbilirubinemia - Stable. Per chart review elevated Total & direct bili are within patient's baseline. AST slightly elevated but now trending down. Likely elevated 2/2 acute illness. Patient also has a normocytic anemia that is stable. Likely has Gilbert's. Will consider further workup if any s/s of active hemolysis present. Will continue to monitor w/ CBCs & CMPs. Indeterminately elevated troponin - Repeat trop overnight elevated at 0.141 and trended up to 0.201. Will only repeat if patient has active chest pain as likely related to demand ischemia in the setting of an acute illness. Will only repeat if patient develops active chest pain. - BNP stable around ~750 since admission. - Will treat possible sepsis 2/2 CAP as described above. - ECHO read showed 55-55% EF w/ diastolic dysfunction. Coronary artery disease - resume home medications. History of CVA - deficits as described above. - continue Plavix Hypertension - BP steadily increased over the course of the day yesterday. Only JUILSSA med is coreg 12.5 BID. Will consider adding a second agent as patient may not tolerate increasing coreg as HR was in the low 60s & down to 52 at one point yesterday. - Will continue to monitor. Hyperlipidemia - resume home medications. Gout - Continue Colchrys. h/o GI bleed 2/2 ASA - Aware, why patient is not currently on ASA. 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 Dispo: Will touch base w/ CM today regarding placement. PCP desires inpatient rehab if possible over SNU. Addendum - Attending - Attending Attestation Date/Time: 08/07/18 8810 I personally evaluated the patient and discussed the management with Dr. Jiménez. I agree with the History, Examination, Assessment and Plan documented above with any addition or exceptions noted below. the patient is sitting up in a chair today and is feeling a little better. His cough is still productive. Labs are improving. Will transition to po levaquin. Amlodipine added for bp control. His pcp has requested an EP consult for silvano pedro
[2018-08-07 06:32] LABS: ALT (SGPT) 42 U/L (8-55); AST (SGOT) 67 U/L (5-34); Alkaline Phosphatase 48 U/L (40-150); Anion Gap 12 mmol/L (10-20); BUN (Urea Nitrogen) 10 mg/dL (8.4-25.7); Bilirubin, Total 0.8 mg/dL (0.2-1.2); Calc. Creatinine Clearance 142 mL/min (70-130); Calcium 8.4 mg/dL (7.8-10.44); Carbon Dioxide 27 mmol/L (23-31); Chloride 103 mmol/L (98-107); Estimated GFR-MDRD Greater than 90; Globulin 2.4 g/dL (2.4-3.5); Glucose 79 mg/dL (80-115); Potassium 3.3 mmol/L (3.5-5.1); Protein, Total 5.4 g/dL (5.8-8.1); Sodium 139 mmol/L (136-145)
[2018-08-07 09:07] LABS: Vancomycin, Trough 18.9 ug/mL
[2018-08-07] MEDS: Loratadine 10 MG TAB PO SCH (10:46)
[2018-08-07] MEDS: Tamsulosin HCl 0.4 MG CAP PO SCH (10:46)
[2018-08-07] MEDS: Amlodipine 5 MG TAB PO SCH (10:47)
[2018-08-07] MEDS: Clopidogrel Bisulfate 75 MG TAB PO SCH (10:48)
[2018-08-07] MEDS: guaiFENesin ER 600 MG TAB PO SCH ×2 (10:48→20:12)
[2018-08-07] MEDS: Carvedilol 6.25 MG TAB PO SCH ×2 (10:48→20:13)
[2018-08-07] MEDS: Vancomycin HCl 1.5 GM in Sodium Chloride 0.9% 250 ML 300 ML IVPB SCH (10:52)
[2018-08-07] MEDS ORDERED: Magnesium 2 GM/50 ML 1 GM in Premix Bag 1 BAG IVPB SCH (11:00)
[2018-08-07] MEDS: Digoxin 0.25 MG TAB PO SCH (12:44)
[2018-08-07] MEDS: Baclofen 10 MG TAB PO SCH ×2 (12:44→20:12)
[2018-08-07] MEDS: Enoxaparin Sodium 40 MG/0.4 ML SYRINGE SC SCH (20:12)
[2018-08-07] MEDS: Atorvastatin Calcium 20 MG TAB PO SCH (20:12)
--- NOTE | 2018-08-08 05:56 | PDOC.FM ---
- Subjective Subjective: Patient states he feels well this AM. Continued to have elevated BPs over the course of the day yesterday. Remains asymptomatic other than persistent generalized fatigue & no appetite. Still denies any headaches, blurry vision, palpitations, chest pain, or SOB. - Objective MAR Reviewed: Yes Vital Signs & Weight: Vital Signs (12 hours) Temp Pulse Resp BP BP Pulse Ox 08/08/18 03:45 98.6 F 62 16 173/79 H 93 L 08/07/18 20:13 175/84 H 08/07/18 19:15 98.6 F 62 18 93 L Weight Weight 109.452 kg I&O: 08/06/18 08/07/18 08/08/18 06:59 06:59 06:59 Intake Total 2650 1460 Output Total 1750 0 600 Balance 900 590 600 Result Diagrams: 08/08/18 17:18 08/08/18 17:18 Phys Exam - Physical Examination Constitutional: NAD HEENT: moist MMs Neck: supple, full ROM Respiratory: no wheezing, no rales, no rhonchi, clear to auscultation bilateral Cardiovascular: RRR, no significant murmur Musculoskeletal: no edema Neurological: non-focal, moves all 4 limbs Psychiatric: normal affect, A&O x 3 Skin: no rash, normal turgor Dx/Plan (1) BPH (benign prostatic hyperplasia) Code(s): N40.0 - BENIGN PROSTATIC HYPERPLASIA WITHOUT LOWER URINRY TRACT SYMP Status: Acute (2) Coronary artery disease Code(s): I25.10 - ATHSCL HEART DISEASE OF [place] CORONARY ARTERY W/O ANG PCTRS Status: Acute (3) Elevated troponin I level Code(s): R74.8 - ABNORMAL LEVELS OF OTHER SERUM ENZYMES Status: Acute (4) Gout Code(s): M10.9 - GOUT, UNSPECIFIED Status: Acute (5) History of stroke Code(s): Z86.73 - PRSNL HX OF TIA (TIA), AND CEREB INFRC W/O RESID DEFICITS Status: Acute (6) Hyperlipidemia Code(s): E78.5 - HYPERLIPIDEMIA, UNSPECIFIED Status: Acute (7) Hypertension Code(s): I10 - ESSENTIAL (PRIMARY) HYPERTENSION Status: Acute (8) Upper respiratory infection Code(s): J06.9 - ACUTE UPPER RESPIRATORY INFECTION, UNSPECIFIED Status: Acute (9) Atrial fibrillation Code(s): I48.91 - UNSPECIFIED ATRIAL FIBRILLATION Status: Acute (10) Gastroesophageal reflux disease Code(s): K21.9 - GASTRO-ESOPHAGEAL REFLUX DISEASE WITHOUT ESOPHAGITIS Status: Acute - Plan Plan: Suspected sepsis 2/2 possible CAP, improving: - Patient continues to improve since initiation of BS Abx. Tmax of 98.6F over last 24 hours & remains HD stable with exception persistently elevated BPs. - Procal continues to downtrend. Down to 0.59 yesterday. Will trend 1-2 days on PO abx to ensure continued downtrend w/ abx de-escalation. Repeat blood Cxs and urine cx negative. Will continue PO levaquin x 3 more days to complete a full 7 days of antibiotics including IV course. - Will continue mucolytics & PRN supplemental O2 to keep sats > 92%. Will also continue PRN tylenol for fever. - Will instruct patient to hold off on aggressive PO hydration as he is getting fluids w/ his Abx infusions. Will continue to monitor strict I&Os & QD weights. Pancytopenia, improving: - WBC continues to slowly downtrend. Is down to 2.6 this AM. Hgb stable at 11.7 & plts up to 120 today. - Leukocytopenia could be 2/2 doses of IV vancomycin. - Will continue to monitor closely w/ QD CBCs. Bradycardia: - Only one bradycardic rate of 59 over course of day yesterday. Likely 2/2 getting digoxin QD since admission in addition to coreg BID. Will continue as patient is finally rate controlled & EP recommended this for now. Atrial fibrillation/flutter w/ RVR, resolved - HR remained in the low 60s all day yesterday. - Will continue to monitor on telemetry and continue home meds. Paroxysmal A fib and/or atrial flutter - Patient had an episode of A fib w/ RVR early on in hospital course that resolved w/ loading dilt and dilt drip for ~ 8 hours. Had a second one that resolved with an extra PO dose of PO coreg. Has been in and out of a flutter over the course of his stay as well. However, per tele no flutter since 08/06. Patient remains asymptomatic and rate controlled. Per PCPs request consulted EP yesterday for possible ablation as patient has h/ o GI bleed and HAS-BLED score of ~5 making him high risk for chronic anticoagulation but also has a stroke history. Will follow-up with EP today for recs. HFpEF: - Aware, ECHO from 08/03 read as described above. Will continue to get strict I& Os & QD weights but will not fluid restrict for now in setting of acute illness. Will be judicious w/ IVFs & only administer boluses PRN. Lower extremity weakness/myositis - Seems consistent with pt's baseline deficits s/p CVA. Could subjectively seem worse to patient 2/2 generalized weakness in setting of acute illness vs. possible viral myositis. Strength has continued to improved but slowly day by day. - PT recommended rehab upon discharge; however, CM says his insurance will not approve this. Will therefore require a SNU stay. Referral placed to [facility] bed on Tuesday, 08/04. Will touch base w/ CM today regarding placement status. Will have PT continue to follow. Hyperbilirubinemia - Stable. Per chart review elevated Total & direct bili are within patient's baseline. AST slightly elevated but now trending down. Likely elevated 2/2 acute illness. Patient also has a normocytic anemia that is stable. Likely has Gilbert's. Will consider further workup if any s/s of active hemolysis present. Will continue to monitor w/ CBCs & CMPs. Indeterminately elevated troponin - Repeat trop overnight elevated at 0.141 and trended up to 0.201. Will only repeat if patient has active chest pain as likely related to demand ischemia in the setting of an acute illness. Will only repeat if patient develops active chest pain. Coronary artery disease - resume home medications. History of CVA - deficits as described above. - continue Plavix Hypertension - BP steadily increased over the course of the day yesterday. Only BP med is coreg 12.5 BID. Will consider switching from amlodipine to an MEHRDAD-I for quicker BP control as patient would likely not tolerate increasing coreg as HR was in the low 60s for the last 2 days or so. - Will continue to monitor. Hyperlipidemia - resume home medications. Gout - Continue Colchrys. h/o GI bleed 2/2 ASA & NSAID use - Aware, why patient is not currently on ASA. 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 Dispo: Will touch base w/ CM today regarding placement. Will also contact EP for recs for possible ablation vs. medication control. Addendum - Attending - Attending Attestation Date/Time: 08/08/182007 I personally evaluated the patient and discussed the management with Dr. Sharma. I agree with the History, Examination, Assessment and Plan documented above with any addition or exceptions noted below. The patient continues to feel better. EP saw the patient yesterday and they have multiple questions. He has been approved for swing bed. Doing well on po antibiotics. No atrial flutter on telemetry.
[2018-08-08 06:25] LABS: ALT (SGPT) 42 U/L (8-55); AST (SGOT) 55 U/L (5-34); Albumin 3.2 g/dL (3.4-4.8); Alkaline Phosphatase 52 U/L (40-150); Anion Gap 13 mmol/L (10-20); BUN (Urea Nitrogen) 8 mg/dL (8.4-25.7); Bilirubin, Total 0.8 mg/dL (0.2-1.2); Calc. Creatinine Clearance 148 mL/min (70-130); Calcium 8.8 mg/dL (7.8-10.44); Carbon Dioxide 27 mmol/L (23-31); Chloride 102 mmol/L (98-107); Estimated GFR-MDRD Greater than 90; Globulin 2.5 g/dL (2.4-3.5); Glucose 86 mg/dL (80-115); Potassium 3.5 mmol/L (3.5-5.1); Protein, Total 5.7 g/dL (5.8-8.1); Sodium 138 mmol/L (136-145)
[2018-08-08 06:35] LABS: Band 1 % (5-11); Eosinophils 1 % (0-10); Hemoglobin 11.7 g/dL (14.0-18.0); Lymphocytes 34 % (21-51); MDiff Complete? YES; Mean Corpuscular HGB CONC 34.1 g/dL (32.0-36.0); Mean Corpuscular Hemoglobin 31.5 pg (27.0-31.0); Mean Corpuscular Volume 92.4 fL (78.0-98.0); Mean Platelet Volume 7.8 fL (7.4-10.4); Monocytes 11 % (0-10); Neutrophil 52 % (42-75); Platelet Count 120 thou/uL (130-400); Platelet Morphology Comment Appears Decreased; RBC Distribution Width 12.4 % (11.5-14.5); Reactive Lymphocytes 1 % (0-10); Red Blood Cell (RBC) Count 3.73 mill/uL (4.70-6.10); White Blood Cell (WBC) Count 2.6 thou/uL (4.8-10.8)
[2018-08-08] MEDS: Digoxin 0.25 MG TAB PO SCH (08:51)
[2018-08-08] MEDS: Loratadine 10 MG TAB PO SCH (08:51)
[2018-08-08] MEDS: Carvedilol 6.25 MG TAB PO SCH ×2 (08:51→20:28)
[2018-08-08] MEDS: Baclofen 10 MG TAB PO SCH ×2 (08:51→20:28)
[2018-08-08] MEDS: Potassium Chloride 20 MEQ TAB PO SCH (08:52)
[2018-08-08] MEDS: Clopidogrel Bisulfate 75 MG TAB PO SCH (08:52)
[2018-08-08] MEDS: guaiFENesin ER 600 MG TAB PO SCH ×2 (08:52→20:29)
[2018-08-08] MEDS: Amlodipine 5 MG TAB PO SCH (08:52)
[2018-08-08] MEDS: Tamsulosin HCl 0.4 MG CAP PO SCH (08:53)
--- NOTE | 2018-08-08 15:32 | PDOC.CTH ---
Cardiology Progress Note - Subjective EP PROGRESS NOTE: 08/08/18 Seen and evaluated for paroxysmal atrial flutter in the setting of pneumonia. He is feeling well today. His is bedside. No new cardiac complaints or concerns today. His breathing is easier today and his strength is returning. - Objective Vital Signs Temp Pulse Pulse Pulse Resp BP BP 08/08/18 12:21 97.6 F 61 18 08/08/18 09:06 75 66 167/85 H 182/89 H 08/08/18 08:00 98.3 F 64 20 08/08/18 03:45 98.6 F 62 16 BP Pulse Ox 08/08/18 12:21 154/80 H 92 L 08/08/18 09:06 08/08/18 08:00 173/80 H 91 L 08/08/18 03:45 173/79 H 93 L Weight 241 lb 4.8 oz 08/07/18 08/08/18 08/09/18 06:59 06:59 06:59 Intake Total 1460 960 Output Total 2050 1900 Balance -590 -940 - Physical Examination General/Neuro: alert & oriented x3, NAD Neck: carotid US brisk, no JVD present Lungs: CTA, unlabored respirations Heart: PMI normal, RRR Abdomen: NT/ND, soft - Telemetry Telemetry Rhythm: SR - Labs Result Diagrams: 08/08/18 05:40 08/08/18 05:40 Troponin/CKMB CK-MB (CK-2) 2.1 ng/mL (0-6.6) 08/03/18 21:04 Troponin I 0.201 ng/mL (< 0.028) H 08/04/18 05:32 - Assessment/Plan 1. Paroxysmal atrial flutter - maintaining SR now 2. Pneumonia 3. CHADS2-VASC >/=3 - Recommend starting Eliquis 5mg BID with history of prior CVA. Does have hx of GIB and elevated HAS BLED score. Would remove ASA or plavix to avoid triple therapy with initiation of Eliquis. If bleeding issues are seen on Eliquis will stop in favor of DAPT alone. I hope his rhythm issues will continue to quiet as his respiratory status improves. Last atrial flutter on 08/06. Ideally NOAC therapy could continue for at least 3 months until a 2 week looping monitor can be work to assess for further arrhythmia issues. This was discussed with Dr Jiménez this afternoon.
[2018-08-08 17:28] LABS: Platelet Count 149 thou/uL (130-400)
[2018-08-08 17:46] LABS: Calc. Creatinine Clearance 148 mL/min (70-130); Estimated GFR-MDRD Greater than 90
--- NOTE | 2018-08-08 17:55 | CON ---
DATE OF CONSULTATION: 08/07/2018 REFERRING PHYSICIAN: Dr. Jiménez. REASON FOR CONSULTATION: Atrial arrhythmias. HISTORY OF PRESENT ILLNESS: Mr. Turcios is a 67-year-old gentleman with a history of a prior CVA with residual right-sided deficits. He also has had 5-vessel bypass , coronary artery disease. He presented to the emergency room with a 1-day history of lower extremity weakness that he noticed when he woke up that morning, was unable to get out of bed. Reportedly, he had also begun to be febrile with a maximum temperature 101.5 at home. There was an associated cough and nasal congestion. He presented to the emergency room and was admitted with pneumonia as well as an upper respiratory infection. He was also found to be in episodes of atrial fibrillation with RVR early in his hospital course, that initially resolved after diltiazem bolus and drip for approximately 8 hours. He spontaneously converted into normal sinus mechanism, but has had paroxysmal episodes of atrial flutter, but maintaining sinus rhythm since 08/06/2018. He has been asymptomatic with this and rate controlled. These newly found arrhythmias have prompted the EP consult. Mr. Turcios is generally feeling well, but weak, tired, but otherwise is without cardiac concerns or complaints today. He continues to have a nonproductive cough. After discussing with him, there is also history of questionable upper GI bleed , but currently he is doing well on Plavix 75 mg daily and Lovenox 40 mg subcu q.p.m. at home. REVIEW OF SYSTEMS: A 12-point review of systems was conducted, is positive for weakness, fatigue, nonproductive cough, recent fevers, and malaise. Negative for heart racing, palpitations, chest pain, pressure, syncope, near syncope. Positive for bilateral lower extremity weakness but no focal weakness. PAST MEDICAL HISTORY: 1. Coronary artery disease, status post 5-vessel bypass in 2008. 2. Cerebrovascular accident in 2011, residual right-sided weakness and deficits. 3. Hypertension. 4. Hyperlipidemia. 5. Gout. 6. BPH. 7. Vasectomy. 8. Tonsillectomy. 9. Hernia repair. FAMILY HISTORY: Noncontributory. SOCIAL HISTORY: Negative for alcohol, tobacco, or illicit drug use. , lives at home with his and ambulates with a walker for assistive device. OBJECTIVE: GENERAL: He is alert, oriented. His affect is appropriate. He is in no apparent distress during the exam. VITAL SIGNS: Temperature 97.9, pulse 59, oxygen is 94% on room air. Blood pressure is 139/67, respirations are 18. HEENT: The patient is normocephalic and atraumatic. EOMs are intact. NECK: Supple without jugular venous distention. HEART: Rate is irregularly irregular with crisp S1, S2 without murmur, rub or gallops are appreciated. LUNGS: Clear to auscultation bilaterally without wheezes, crackles, or rhonchi. ABDOMEN: Soft and nontender without palpable masses. NEUROLOGIC: Cranial nerves 2 through 12 are nonfocal. Grossly intact other than residual right upper and right lower extremity mild weakness from the stroke in 2012. LABORATORY DATA: Hematology was reviewed. WBC 2.8, hemoglobin 11.2, hematocrit 33.3, platelet count is 110. Chemistry; potassium 3.3, creatinine 0.80, magnesium 1.7. DIAGNOSTIC STUDIES: Telemetry and EKG reviewed and currently reflect normal sinus mechanism, although episodes of typical atrial flutter is seen with paroxysmal episodes spontaneously terminated at sinus rhythm, most recently on 08/06/2018, even episodes of this typical atrial flutter are rate controlled. IMPRESSION: 1. Paroxysmal atrial flutter with CTI dependent morphology.. 2. Mild tachycardia/bradycardia syndrome. 3. Upper respiratory infection/questionable pneumonia, resolving. 4. History of coronary artery disease status post 5-vessel bypass in 2011. 5. Cerebrovascular accident in 2012 with residual right-sided weakness. 6. LV ejection fraction 50% to 55% by recent echocardiogram with mild MR and mild TR. 7. Pancytopenia, which is improving. 8. History of GI bleed. RECOMMENDATIONS: Continue to monitor for now. It appears that he is spontaneously converting out of his atrial flutter as his respiratory illnesses are treated and are resolving. Hopefully, no further arrhythmia issues are seen once his current illness has resolved. His CHADS-VASc score is elevated with history of a prior stroke and oral anticoagulation is indicated. Ideally, we would have him on oral anticoagulation for at least 3 months while he recovers from his pneumonia and in and out of atrial flutter. At that point, I would recommend doing a 2 week looping monitor to evaluate for any recurrent arrhythmias before taking him off Eliquis in favor of his prior antiplatelet therapy. We recommend Eliquis 5 mg b.i.d. If bleeding issues are seen, consider antiarrhythmic therapy versus ablation. I did discuss ablation with the family today and generally that is our recommendation for atrial flutter. However, they prefer for medical management at this time. This will always be an option as an outpatient as well, should recurrence be seen or bleeding issues are experienced with oral anticoagulation. Thank you for allowing us to participate in the care of this patient. We will continue to follow through the hospital stay and help manage the arrhythmias issues. Job ID: [id number] [facility] CENTERLefty
[2018-08-08] MEDS: Atorvastatin Calcium 20 MG TAB PO SCH (20:28)
[2018-08-08] MEDS: Enoxaparin Sodium 40 MG/0.4 ML SYRINGE SC SCH (20:29)
[2018-08-09 06:08] LABS: #Eosinphils 0.1 thou/uL (0.0-0.7); #Lymphocytes 1.1 thou/uL (1.20-3.40); #Monocytes 0.5 thou/uL (0.11-0.59); #Neutrophils 2.1 thou/uL (1.40-6.50); %Basophils 0.2 % (0.0-1.0); %Eosinophils 1.7 % (0.0-10.0); %Neutrophils 56.1 % (42.0-75.0); Hemoglobin 11.5 g/dL (14.0-18.0); Mean Corpuscular HGB CONC 33.4 g/dL (32.0-36.0); Mean Corpuscular Hemoglobin 30.8 pg (27.0-31.0); Mean Corpuscular Volume 92.3 fL (78.0-98.0); Mean Platelet Volume 7.8 fL (7.4-10.4); Platelet Count 146 thou/uL (130-400); RBC Distribution Width 12.6 % (11.5-14.5); Red Blood Cell (RBC) Count 3.74 mill/uL (4.70-6.10); White Blood Cell (WBC) Count 3.8 thou/uL (4.8-10.8)
--- NOTE | 2018-08-09 06:17 | PDOC.FM ---
- Subjective Subjective: Patient states he feels well this AM. Denies any chest pain, fever/chills, N/V/ D. Endorses slightly improved appetite today. - Objective MAR Reviewed: Yes Vital Signs & Weight: Vital Signs (12 hours) Temp Pulse Resp BP BP Pulse Ox 08/09/18 04:00 98.2 F 62 18 164/83 H 08/08/18 20:28 168/76 H 08/08/18 20:03 96 08/08/18 19:48 98.1 F 67 16 168/76 H 96 Weight Weight 109.452 kg I&O: 08/07/18 08/08/18 08/09/18 06:59 06:59 06:59 Intake Total 1460 960 Output Total 2049 1900 750 Balance -590 940 -750 Result Diagrams: 08/09/18 05:39 08/09/18 05:39 Phys Exam - Physical Examination Constitutional: NAD HEENT: moist MMs Neck: no nodes, supple, full ROM Respiratory: no wheezing, no rales, no rhonchi, clear to auscultation bilateral Cardiovascular: RRR, no significant murmur Gastrointestinal: positive bowel sounds Neurological: non-focal, moves all 4 limbs Lymphatic: no nodes (no supraclavicular or axillary LAD) Psychiatric: normal affect, A&O x 3 Skin: no rash, normal turgor Dx/Plan (1) BPH (benign prostatic hyperplasia) Code(s): N40.0 - BENIGN PROSTATIC HYPERPLASIA WITHOUT LOWER URINRY TRACT SYMP Status: Acute (2) Coronary artery disease Code(s): I25.10 - ATHSCL HEART DISEASE OF [place] CORONARY ARTERY W/O ANG PCTRS Status: Acute (3) Elevated troponin I level Code(s): R74.8 - ABNORMAL LEVELS OF OTHER SERUM ENZYMES Status: Acute (4) Gout Code(s): M10.9 - GOUT, UNSPECIFIED Status: Acute (5) History of stroke Code(s): Z86.73 - PRSNL HX OF TIA (TIA), AND CEREB INFRC W/O RESID DEFICITS Status: Acute (6) Hyperlipidemia Code(s): E78.5 - HYPERLIPIDEMIA, UNSPECIFIED Status: Acute (7) Hypertension Code(s): I10 - ESSENTIAL (PRIMARY) HYPERTENSION Status: Acute (8) Upper respiratory infection Code(s): J06.9 - ACUTE UPPER RESPIRATORY INFECTION, UNSPECIFIED Status: Acute (9) Gastroesophageal reflux disease Code(s): K21.9 - GASTRO-ESOPHAGEAL REFLUX DISEASE WITHOUT ESOPHAGITIS Status: Acute (10) Atrial fib/flutter, transient Code(s): [id number] - Status: Resolved (11) Leukopenia Code(s): D72.819 - DECREASED WHITE BLOOD CELL COUNT, UNSPECIFIED Status: Acute - Plan Plan: Sepsis 2/2 possible CAP, improving: - Sepsis ruled out/resolved. Patient continues to improve since initiation of PO Levaquin. Remains afebrile & HD stable with exception persistently elevated BPs. - Procal continues to downtrend. Repeat blood Cxs and urine cx negative. Will continue PO levaquin x 2 more days to complete a full 7 days of antibiotics including IV course. - Will continue mucolytics & PRN supplemental O2 to keep sats > 92%. Will also continue PRN tylenol for fever. - Will instruct patient to hold off on aggressive PO hydration as he is getting fluids w/ his Abx infusions. Will continue to monitor strict I&Os & QD weights. Pancytopenia, resolved: - Only WBC count & Hgb remain low. WBC slightly up this AM at 3.8. Hgb stable at 11.5 & plts up to 146 today. - Leukocytopenia likely 2/2 doses of IV vancomycin. - Will continue to monitor closely w/ QD CBCs. Paroxysmal A fib and atrial flutter - Patient had an episode of A fib w/ RVR early on in hospital course that resolved w/ loading dilt and dilt drip for ~ 8 hours. Had a second one that resolved with an extra PO dose of PO coreg. Has been in and out of a flutter over the course of his stay as well. However, per tele no flutter since 08/06. Patient remains asymptomatic and rate controlled. - EP, Dr. Penny on board, appreciate recs. Per Dr. Penny, patient's family elected to hold off on ablation for now to allow time to recover from acute illness. Discussed fact that patient has a high HAS-BLED score of ~5 making him high risk for chronic anticoagulation but also has a stroke history & an elevated CHADS-VASC score. Made decision with patient and family as well as PCP and Dr. Penny to initiate stroke PPx w/ Eliquis starting today. Will instruct patient to follow-up w/ [facility] in 2-3 months as outpatient to ensure resolution of arrhythmia. Bradycardia, resolved: - HR has remained WNLs in mid-low 60 range over last 2 days or so. Will continue rate controlling meds, dig & coreg per EP recs. Atrial fibrillation w/ RVR, resolved - HR remained in the low 60s all day yesterday. - Will continue to monitor on telemetry and continue home meds. HFpEF: - Aware, ECHO from 08/03 read as described above. Will continue to get strict I& Os & QD weights but will not fluid restrict for now in setting of acute illness. Will be judicious w/ IVFs & only administer boluses PRN. Lower extremity weakness/myositis - Seems consistent with pt's baseline deficits s/p CVA. Could subjectively seem worse to patient 2/2 generalized weakness in setting of acute illness vs. possible viral myositis. Strength has continued to improved but slowly day by day. - PT recommended rehab upon discharge; however, CM says his insurance will not approve this. Patient accepted to [place] for a swing bed yesterday. Anticipate d /c there today. Hyperbilirubinemia - Stable. Per chart review elevated Total & direct bili are within patient's baseline. AST continues trending down. Likely elevated 2/2 acute illness. Patient also has a normocytic anemia that is stable. Likely has Gilbert's. Will consider further workup if any s/s of active hemolysis present. Will continue to monitor w/ CBCs & CMPs. Indeterminately elevated troponin - Repeat trop overnight elevated at 0.141 and trended up to 0.201. Will only repeat if patient has active chest pain as likely related to demand ischemia in the setting of an acute illness. Will only repeat if patient develops active chest pain. Coronary artery disease - resume home medications. History of CVA - deficits as described above. - continue Plavix Hypertension - BP steadily increased over the course of the day yesterday. Only BP med is coreg 12.5 BID. Will consider switching from amlodipine to an MEHRDAD-I or just adding a low dose ACAE-I for quicker BP control as patient would likely not tolerate increasing coreg as HR has been in the low 60s for the last 2 days or so. - Will continue to monitor. Hyperlipidemia - resume home medications. Gout - Continue Colchrys. h/o GI bleed 2/2 ASA & NSAID use - Aware, why patient is not currently on ASA. 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 Dispo: Patient accepted to [place] yesterday afternoon. Anticipate d/c there today w/ close f/u w/ PCP & EP. Addendum - Attending - Attending Attestation Date/Time: 08/09/18 1290 I personally evaluated the patient and discussed the management with Dr. Jiménez. I agree with the History, Examination, Assessment and Plan documented above with any addition or exceptions noted below. The patient is feeling better. Labs are stable. He began eliquis. He is stable to d/c to [place] for rehabilitation.
[2018-08-09 06:32] LABS: ALT (SGPT) 44 U/L (8-55); AST (SGOT) 51 U/L (5-34); Albumin 3.2 g/dL (3.4-4.8); Alkaline Phosphatase 56 U/L (40-150); Anion Gap 10 mmol/L (10-20); BUN (Urea Nitrogen) 10 mg/dL (8.4-25.7); Bilirubin, Total 0.9 mg/dL (0.2-1.2); Calc. Creatinine Clearance 139 mL/min (70-130); Calcium 9.1 mg/dL (7.8-10.44); Carbon Dioxide 30 mmol/L (23-31); Chloride 101 mmol/L (98-107); Estimated GFR-MDRD Greater than 90; Globulin 2.6 g/dL (2.4-3.5); Glucose 85 mg/dL (80-115); Potassium 3.8 mmol/L (3.5-5.1); Protein, Total 5.8 g/dL (5.8-8.1); Sodium 137 mmol/L (136-145)
[2018-08-09] MEDS: Digoxin 0.25 MG TAB PO SCH (08:47)
[2018-08-09] MEDS: Clopidogrel Bisulfate 75 MG TAB PO SCH (08:47)
[2018-08-09] MEDS: Baclofen 10 MG TAB PO SCH (08:48)
[2018-08-09] MEDS: Carvedilol 6.25 MG TAB PO SCH (08:48)
[2018-08-09] MEDS: Loratadine 10 MG TAB PO SCH (08:48)
[2018-08-09] MEDS: Potassium Chloride 20 MEQ TAB PO SCH (08:48)
[2018-08-09] MEDS: guaiFENesin ER 600 MG TAB PO SCH (08:48)
[2018-08-09] MEDS: Tamsulosin HCl 0.4 MG CAP PO SCH (08:49)
[2018-08-09] MEDS: Amlodipine 5 MG TAB PO SCH (08:49)
[2018-08-09] MEDS ORDERED: Apixaban 5 MG TAB PO SCH (09:00)
[2018-08-09 10:03] LABS: Band 2 % (5-11); Eosinophils 3 % (0-10); Lymphocytes 26 % (21-51); Monocytes 6 % (0-10); Reactive Lymphocytes 8 % (0-10)
[2018-08-09 10:04] LABS: Platelet Morphology Comment Appears Adequate
[2018-08-09 10:05] LABS: Neutrophil 54 % (42-75)
--- NOTE | 2018-08-09 10:24 | PDOC.CTH ---
Cardiology Progress Note - Subjective EP PROGRESS NOTE: 08/09/18 Seen and evaluated for paroxysmal atrial flutter in the setting of pneumonia. He is feeling well today. His is bedside. No new cardiac complaints or concerns today. His breathing is easier today and his strength is returning. - Objective Vital Signs Temp Pulse Resp BP Pulse Ox 08/09/18 08:49 62 08/09/18 08:47 62 08/09/18 08:00 97.6 F 63 17 177/85 H 94 L 08/09/18 04:00 98.2 F 62 18 164/83 H Weight 241 lb 8 oz 08/08/18 08/09/18 08/10/18 06:59 06:59 06:59 Intake Total 960 400 Output Total 1900 1350 Balance -940 -950 - Physical Examination General/Neuro: alert & oriented x3, NAD Neck: carotid US brisk, no JVD present Lungs: CTA, unlabored respirations Heart: PMI normal, RRR Abdomen: NT/ND, soft - Telemetry Telemetry Rhythm: SR - Labs Result Diagrams: 08/09/18 05:39 08/09/18 05:39 Troponin/CKMB CK-MB (CK-2) 2.1 ng/mL (0-6.6) 08/03/18 21:04 Troponin I 0.201 ng/mL (< 0.028) H 08/04/18 05:32 - Assessment/Plan 1. Paroxysmal atrial flutter - maintaining SR now 2. Pneumonia 3. CHADS2-VASC >/=3 - Starting Eliquis 5mg BID this AM. Does have hx of GIB and elevated HAS BLED score. Would remove ASA or plavix to avoid triple therapy with initiation of Eliquis. If bleeding issues are seen on Eliquis will stop in favor of DAPT alone. I hope his rhythm issues will continue to quiet as his respiratory status improves. Last atrial flutter on 08/06/18. Ideally NOAC therapy could continue for at least 3 months until a 1-2 week looping monitor can be worn to assess for further arrhythmia issues once his current medical issues are largely resolved. EP signing off. Please contact me if further input is requested. Follow up with [facility] in 6 weeks or soon if needed.
[2018-08-09 15:53] VITALS: BP 132/70; TEMP 97.2
--- NOTE | 2018-08-10 12:29 | PQF ---
HEIDI COLVIN IRVIN [id number] CLINICAL DOCUMENTATION CLARIFICATION FORM: POST DISCHARGE Addendum to original discharge summary date: ____ Late entry note date: __ DATE: 08/10/18 ATTN: Roberto, Please exercise your independent, professional judgment in responding to the clarification form. Clinical indicators are provided on the bottom of this form for your review Please check appropriate box(s): HFpEF ACUITY [ ] Acute [ ] Acute on Chronic [ ] Chronic [ ] Other diagnosis [ ] Unable to determine In addition, please specify: Present on Admission (POA): [ ] Yes [ ] No [ ] Unable to determine For continuity of documentation, please document condition throughout progress notes and discharge summary. Thank You. CLINICAL INDICATORS - SIGNS / SYMPTOMS / LABS Ejection Fraction =50-55 %---08/03 Echo Report HFpEF---08/04 Event note BNP and troponin essentially unchanged---08/04 Event note CXR concerning for fluid overload vs interstitial pneumonia--08/04 Event note Tachycardic, irregular rhythm---08/04 Event note RISKS: CAD, S/P CABG x 5--08/02 H&P Hypertension---08/02 H&P Review of chart showed patient not given AM dose of Coreg---08/04 Event note TREATMENTS: Nurse had given PM Coreg at 1999---08/04 Event note Transferred to telemetry---08/04 Event note Given Diltiazem 15 mg IVP, and started on Diltiazem gtt at 5mg/hr---3 note Thank you, Dilma Epstein, [facility] 08/10/18 12:26 PM (This form is maintained as a part of the permanent medical record) 2014 [employer]. All Rights Reserved Dilma [email or web address] [phone] JIM
--- NOTE | 2018-08-10 14:10 | DIS ---
DATE OF ADMISSION: 08/02/2018 DATE OF DISCHARGE: 08/09/2018 RESIDENT: Ana M Jiménez MD CONSULTS: Electrophysiology, Dr. Librado Penny. PROCEDURES: 1. Chest x-ray on 08/02/2018, which noted chronic obstructive changes with no focal consolidation, pleural fluid, or pneumothorax apparent. 2. Chest x-ray on 08/03/2018, which showed evidence of new bilateral perihilar infiltrates or edema. Followup recommended. 3. Echocardiogram report on 08/03/2018, which noted an LVEF estimated at 50% to 55% with E-A flow reversal noted suggestive of diastolic dysfunction. Mild mitral and tricuspid regurgitation also present. PRIMARY DIAGNOSES: 1. Sepsis secondary to presumed community-acquired pneumonia. 2. Atrial fibrillation with rapid ventricular response. 3. Paroxysmal atrial flutter. 4. Labile hypertension. 5. Pancytopenia. 6. Elevated troponin I level secondary to demand ischemia. SECONDARY DIAGNOSES: 1. History of ischemic cerebrovascular accident. 2. History of paroxysmal atrial fibrillation. 3. Gastroesophageal reflux disease. 4. Coronary artery disease, status post 5 vessel coronary artery bypass graft. 5. Hypertension. 6. Hyperlipidemia. 7. Gout. 8. BPH. 9. History of gastrointestinal bleed, on aspirin and NSAIDs. DISCHARGE MEDICATIONS: 1. Simvastatin 40 mg p.o. at bedtime. 2. Digoxin 0.25 mg p.o. daily. 3. Coreg 12.5 mg p.o. b.i.d. 4. Loratadine 10 mg p.o. daily. 5. Tamsulosin 0.4 mg p.o. daily. 6. Baclofen 10 mg p.o. b.i.d. 7. Plavix 75 mg p.o. daily. 8. Tylenol 1000 mg p.o. every 6 hours p.r.n. 9. Norvasc 5 mg p.o. daily. 10. Mucinex 600 mg p.o. every 12 hours. 11. Levaquin 750 mg p.o. daily for 3 days. 12. Eliquis 5 mg p.o. b.i.d. 13. Protonix 40 mg p.o. daily. DISCONTINUED MEDICATIONS: None. HOSPITAL COURSE: The patient is a 67-year-old gentleman with a past medical history significant for an ischemic CVA with residual right-sided weakness and coronary artery disease s/p a 5V CABG who presented to the emergency department with a chief complaint of a 1-day history of bilateral lower extremity weakness with associated fevers up to 101.5 at home and a nonproductive cough. Of note, the patient's was currently being treated for community-acquired pneumonia, so the decided to come to the emergency department for further evaluation. On presentation to the ED, the patient's vitals were noted to be within normal limits with the exception of a heart rate of 101. Routine lab work including a CBC and CMP was obtained, which was significant for a normocytic anemia with a hemoglobin of 12.7 and MCV of 92.1, thrombocytopenia with platelet count of 127, and hyperbilirubinemia with an elevated bilirubin of 1.5. Also of note, an initial troponin level was noted to be slightly elevated at 0.113. A chest x-ray was also obtained which did not note any acute cardiopulmonary process; however, given the patient's cardiac history, his troponins were trended over the course of 1st night of hospitalization and he was admitted for close observation overnight. Regarding the patient's CAP. Over the course of the patient's first night of hospitalization, it was noted that the patient continued to fever. Therefore, a repeat procalcitonin was ordered & noted to have slightly up trended from 0.43 to 0.79. The patient was started on empiric abx for suspected CAP with IV doxycycline. However, after several days on IV doxycycline, the patient continued to fever and by 08/04/2018, it was noted that the patient' s procalcitonin level had risen significantly from 0.79 to 4.44. His lactic acid level had also increased from 0.8 on admission to 1.1. The patient was therefore started on broad-spectrum antibiotics and repeat cultures including blood and urine cultures were obtained. The patient was continued on broad-spectrum antibiotics for the next several days and approximately 2 days prior to discharge was transitioned to p.o. Levaquin. His procalcitonin was trended for the course of his hospitalization, it continued to downtrend even after transition from IV vancomycin and Zosyn to p.o. Levaquin. Regarding the patient's atrial fibrillation with RVR, on day 3 of hospitalization, the patient was noted to have developed atrial fibrillation with RVR with a pulse in the 130s. He was therefore given a 15mg IV diltiazem bolus and started on diltiazem drip at 5 mg/hour. He remained on the diltiazem drip for approximately 8 hours before his rate returned to normal limits and the drip was discontinued. The patient was then restarted on his home rate control medications including metoprolol and digoxin, and remained rate controlled for the remainder of his hospital stay. He did, however , have periodic episodes of atrial flutter on and off up until approximately 3 days prior to discharge. Therefore, per the patient's PCP's request, Electrophysiology, Dr. Librado Penny, was consulted for evaluation & consideration for possible cardiac ablation. However, per the patient's request, Dr. Penny recommended holding off on any ablations while the patient was currently recovering from his acute illness. However, Dr Penny did recommend close follow-up upon discharge in approximately 2 months during which the patient would need to undergo home cardiac monitoring prior to an in office appointment with him. It was also recommended by Dr. Penny that the patient restarted on stroke prophylaxis with p.o. Eliquis 5 mg b.i.d. Therefore, after discussion with the patient and his PCP, it was decided to initiate Eliquis therapy prior to discharge which was to be continued until follow-up with Electrophysiology as an outpatient. Regarding the patient's pancytopenia, his white blood cell count dropped from 5.8 to 3.3, approximately one day after being started on IV vancomycin. His hemoglobin level remained stable throughout his hospitalization and his platelets responded appropriately after discontinuation of the Lovenox for DVT prophylaxis. It was therefore decided that his leukopenia was most likely secondary to his IV antibiotic regimen as it did begin to improve after transition from IV vancomycin & zosyn to p.o. Levaquin. Regarding the patient's elevated troponin level, his troponins were trended x3 over the course of his hospitalization and did eventually downtrend. It was therefore decided that the elevated levels were most likely secondary to demand ischemia in the setting with acute illness. Regarding the patient's lower extremity weakness, it was recommended by Physical Therapy that the patient be admitted to either inpatient rehabilitation or a long-term unit for more aggressive physical therapy to work on improving his strength back to his baseline limits prior to his acute illness. The patient was therefore referred to [facility] for inpatient rehabilitation and was accepted on 08/08/2018 and discharged to [facility] on 08/09/2018. DISPOSITION: Stable. DISCHARGE INSTRUCTIONS: 1. Location: [facility]. 2. Diet: Heart healthy diet. 3. Activity: Activity as tolerated, no restrictions. 4. Follow-up: The patient was instructed to follow up with his primary care provider within one week of discharge from long-term unit. He was also instructed to follow up with Dr. Librado Penny within six weeks or as soon as possible upon discharge from long-term facility. PRIMARY CARE PROVIDER: Peter Burciaga MD Job ID: [id number] MTDD
--- NOTE | 2018-08-10 15:05 | PQF ---
CLINICAL DOCUMENTATION IMPROVEMENT CLARIFICATION FORM: ICD-10 Updated PLEASE DO AN ADDENDUM TO THE PROGRESS NOTE WITH ANY DOCUMENTATION UPDATES OR ADDITIONS AND CARRY THROUGH TO DC SUMMARY. THANK YOU. DATE: 08/11/18 ATTN: DR. MOHAN Please exercise your independent, professional judgment in responding to the clarification form. Clinical indicators are provided on the bottom of this form for your review Please check appropriate box(es): [ x ] Sepsis due to: (Pna, UTI, gangrenous gall bladder, etc.) ___PNA [ ] Localized infection without sepsis [ ] Other diagnosis [ ] Unable to determine In addition, please specify: Present on Admission (POA): [ ] Yes [ ] No [ x ] Unable to determine For continuity of documentation, please document condition throughout progress notes and discharge summary. Thank You. CLINICAL INDICATORS - SIGNS / SYMPTOMS / LABS PROGRESS NOTE 3: "SUSPECTED SEPSIS 2/2 POSSIBLE CAP" TEMP 101.5 / 102.8 WBC 2.6 / 3.8 RISKS: WEAKNESS, COUGH, FEVER (ER NOTE) POSSIBLE PNEUMONIA VS UPPER RESPIRATORY INFECTION TREATMENT: BLOOD AND URINE CULTURES IV VANCOMYCIN (08/04) IV ZOSYN (08/04-08/07) LEVAQUIN (08/08-08/09) TELEMETRY MONITORING (This form is maintained as a part of the permanent medical record) 2014 [employer], [employer]. All Rights Reserved [facility]
--- NOTE | 2018-08-10 15:12 | PQF ---
CLINICAL DOCUMENTATION IMPROVEMENT CLARIFICATION FORM: ICD-10 Updated PLEASE DO AN ADDENDUM TO THE PROGRESS NOTE WITH ANY DOCUMENTATION UPDATES OR ADDITIONS AND CARRY THROUGH TO DC SUMMARY. THANK YOU. DATE: 08/11/18 ATTN : DR. MOHAN Please exercise your independent, professional judgment in responding to the clarification form. Clinical indicators are provided on the bottom of this form for your review Please check appropriate box(s) to clarify if the following diagnosis has been ruled in or ruled out: PNEUMONIA [ ] Ruled in diagnosis [ ] Continue to treat [ ] Resolved [ ] Ruled out diagnosis [ ] Other diagnosis [ x ] Unable to determine In addition, please specify: Present on Admission (POA): [ ] Yes [ ] No [x ] Unable to determine For continuity of documentation, please document condition throughout progress notes and discharge summary. Thank You. CLINICAL INDICATORS - SIGNS / SYMPTOMS / LABS PROGRESS NOTE 08/03: POSSIBLE PNEUMONIA VS UPPER RESPIRATORY INFECTION" PROGRESS NOTE 08/05: "SUSPECTED SEPSIS 07/08 POSSIBLE CAP" TEMP 101.5 / 102.8 WBC 2.6 / 3.8 RISKS: WEAKNESS, COUGH, FEVER (ER NOTE) TREATMENT: BLOOD AND URINE CULTURES IV VANCOMYCIN (08/04) IV ZOSYN (08/04-08/07) LEVAQUIN (08/08-08/09) TELEMETRY MONITORING (This form is maintained as a part of the permanent medical record) 2014 [employer], [employer]. All Rights Reserved CAM [email or web address] Office: [phone] [facility]
--- NOTE | 2018-08-12 20:32 | EKG ---
Test Reason : Blood Pressure : / mmHG Vent. Rate : 102 BPM Atrial Rate : 102 BPM P-R Int : 168 ms QRS Dur : 152 ms QT Int : 398 ms P-R-T Axes : 080 -46 100 degrees QTc Int : 518 ms Sinus tachycardia Possible Left atrial enlargement Right bundle branch block Left anterior fascicular block Bifascicular block Left ventricular hypertrophy with repolarization abnormality Cannot rule out Septal infarct , age undetermined Abnormal ECG Confirmed by ISRAEL HOWARD, DIANNE ([id number]), manuscript editor CHAUNCEY CARMICHAEL ([id number]) on 08/12/2018 8:32:29 PM Referred By: Confirmed By:DIANNE WOOD MD
== END 2018-08-09 17:19 | DRG 871 ==
LOC: ERS 12:28 → 2SW 15:51 → OBSVTOIN 15:51 → T4-A 08-03 13:55 → 2NO 08-03 23:41
PROVIDERS: ADMIT Family Medicine; ATTEND Family Medicine
DX: A41.9 Sepsis, unspecified organism (principal); J18.9 Pneumonia, unspecified organism; I69.351 Hemiplegia and hemiparesis following cerebral infarction affecting right dominant side; I48.92 Unspecified atrial flutter; D61.818 Other pancytopenia; I24.8 Other forms of acute ischemic heart disease; I50.30 Unspecified diastolic (congestive) heart failure; I48.0 Paroxysmal atrial fibrillation; I25.10 Atherosclerotic heart disease of native coronary artery without angina pectoris; E78.5 Hyperlipidemia, unspecified; N40.0 Benign prostatic hyperplasia without lower urinary tract symptoms; M10.9 Gout, unspecified; Z95.1 Presence of aortocoronary bypass graft; J06.9 Acute upper respiratory infection, unspecified; I11.0 Hypertensive heart disease with heart failure; K21.9 Gastro-esophageal reflux disease without esophagitis; M60.9 Myositis, unspecified; E80.6 Other disorders of bilirubin metabolism; I34.0 Nonrheumatic mitral (valve) insufficiency; I07.1 Rheumatic tricuspid insufficiency; Z79.899 Other long term (current) drug therapy; Z79.02 Long term (current) use of antithrombotics/antiplatelets; Z87.19 Personal history of other diseases of the digestive system; Z88.8 Allergy status to other drugs, medicaments and biological substances; Z88.6 Allergy status to analgesic agent; Z88.1 Allergy status to other antibiotic agents; Z98.52 Vasectomy status
CPT/HCPCS: 36415; 36416; 71045; 71046; 80053; 80202; 81001; 82248; 82550; 82553; 83605; 83735; 83880; 84145; 84443; 84484; 85025; 87040; 87086; 87804; 87899; 93005; 93010; 93306; J1650; J1940; J2543; J3370; J3475; J7050